=== PATIENT | female | born 1945 | race Caucasian/White ===

== ENCOUNTER 2017-07-02 06:39 | Inpatient (IN) | payer OTHER ==
--- NOTE | 2017-06-10 10:50 | PAT Medication Instructions ---
Service Date Jun 10, 2017. Current Home Medication List Aspirin (Aspirin Ec), 81 MG PO QPM B-Complex W/ Folic Acid (B Complex), 1 TAB PO QAM Calcium/Vitamin D (Os-Gutierrez 500 Plus D), 1 TAB PO QAM Haloperidol (Haloperidol), 1 MG PO HS Hydrochlorothiazide (Hctz), 25 MG PO QAM Ibandronate Sodium (Boniva), 150 MG PO MONTHLY Krill Oil ([place]-3 Krill Oil 500 mg), 1 CAP PO QAM Nortriptyline (Pamelor), 100 MG PO HS Potassium Chloride (Klor-Con Ext Rel), 8 MEQ PO QAM Vitamin E (Vitamin E), 1 TAB PO QAM Medication Instructions For Your Scheduled Surgery - Continue as directed: Ibandronate Sodium (Boniva), 150 MG PO MONTHLY - Hold the following medications 2 weeks prior to surgery: Vitamin E (Vitamin E), 1 TAB PO QAM Krill Oil ([place]-3 Krill Oil 500 mg), 1 CAP PO QAM - Hold the following medications the morning of surgery: B-Complex W/ Folic Acid (B Complex), 1 TAB PO QAM Calcium/Vitamin D (Os-Gutierrez 500 Plus D), 1 TAB PO QAM Hydrochlorothiazide (Hctz), 25 MG PO QAM Potassium Chloride (Klor-Con Ext Rel), 8 MEQ PO QAM - Take the following medications as scheduled the night before surgery: Nortriptyline (Pamelor), 100 MG PO HS Aspirin (Aspirin Ec), 81 MG PO QPM Haloperidol (Haloperidol), 1 MG PO HS Nothing to eat or drink after midnight If you have any questions please call us at [phone] or [phone] or [phone]
[2017-06-10 11:38] LABS: BASO % 0.2 %; BASO ABS # 0.01 K/uL (0-0.2); COMPLETE YES; EOS % 0.2 %; HEMATOCRIT 34.9 % (37-47); IG% 4.9 %; LYMPH % 26.2 %; LYMPH ABS # 1.13 K/uL (1.2-3.4); MEAN CELL VOLUME 95.9 fL (80-100); MEAN CORPUSCULAR HEMOGLOBIN 31.9 pg (25-34); MEAN CORPUSCULAR HGB CONC 33.2 g/dl (32-36); MEAN PLATELET VOLUME 10.2 fL (7.4-10.4); MONO % 10.9 %; NEUT % 57.6 %; PLATELET COUNT 421 K/uL (130-400); RED BLOOD COUNT 3.64 M/uL (4.2-5.4); WHITE BLOOD COUNT 4.32 K/uL (4.8-10.8)
[2017-06-10 11:45] LABS: PARTIAL THROMBOPLASTIN RATIO 1.2; PROTHROMBIN TIME (PATIENT) 11.1 SECONDS (9.0-12.0)
--- NOTE | 2017-06-10 11:48 | DIAGNOSTIC IMAGING REPORT ---
CHEST PREADMISSION(PA/LAT) CLINICAL HISTORY: PAT preoperative evaluation COMPARISON STUDY: No previous studies for comparison. FINDINGS: Mild emphysematous change. Mild diaphragmatic flattening. No focal infiltrates. No cardiac enlargement. IMPRESSION: Mild emphysematous change. No acute process. The above report was generated using voice recognition software. It may contain grammatical, syntax or spelling errors. Electronically signed by: Anant Encarnacion M.D. 06/10/2017 11:47 AM Dictated Date/Time: 06/10/2017 11:46 AM
[2017-06-10 12:09] LABS: ESTIMATED AVERAGE GLUCOSE 131 mg/dl; HA1C FLAG Normal (Normal)
[2017-06-10 13:21] LABS: BUN/CREATININE RATIO 17.7 (10-20); CALCIUM 8.8 mg/dl (8.5-10.1); CREATININE 0.68 mg/dl (0.60-1.20); POTASSIUM 3.3 mmol/L (3.5-5.1)
[2017-06-10 13:30] LABS: URINE APPEARANCE CLOUDY (CLEAR); URINE BILIRUBIN NEG (NEG); URINE COLOR YELLOW; URINE NITRITE NEG (NEG); URINE SPECIFIC GRAVITY 1.013 (1.000-1.030); UROBILINOGEN NEG (NEG)
[2017-06-10 13:46] LABS: MANUAL MICROSCOPIC REQUIRED? NO; REVIEW REQ? NO
--- NOTE | 2017-07-01 12:36 | HISTORY & PHYSICAL EXAMINATION ---
DATE OF ADMISSION: 07/02/2017 CHIEF COMPLAINT: Left hip pain. HISTORY OF PRESENT ILLNESS: The patient is a 71-year-old female with known osteoarthritis about her left hip. She has pain with ambulation requiring use of a cane. She tried intermittent anti-inflammatory medications with minimal relief. Due to ongoing pain and disability, she now desires to proceed with left total hip arthroplasty. PAST MEDICAL HISTORY: Depression, acid reflux, severe arthritis, borderline anemia. PAST SURGICAL HISTORY: Hysterectomy. MEDICATIONS: Include aspirin 81 mg daily, Haldol 1 mg at bedtime, nortriptyline 50 mg 2 capsules at bedtime, Klor-Con 8 mEq daily, MegaRed once daily, HCTZ 50 mg half tablet daily, Boniva monthly. ALLERGIES: No known drug allergies. SOCIAL HISTORY: She lives alone on a single story. She is interested in [facility] upon discharge from the hospital. REVIEW OF SYSTEMS: Noncontributory. PHYSICAL EXAMINATION: GENERAL: Well-nourished, well-developed elderly female who appears her stated age. HEAD, EYES, EARS, NOSE, AND THROAT: Normocephalic, atraumatic, extraocular movements intact, oropharynx pink and moist. NECK: Supple without adenopathy. LUNGS: Clear to auscultation bilaterally. HEART: Regular rate and rhythm. ABDOMEN: Soft, nontender, nondistended. EXTREMITIES: The upper extremities are within normal limits. Left hip demonstrates limited range of motion. There is limitation of active and passive internal/external rotation with pain at end range. X-RAYS: X-rays were reviewed. She has complete loss of the joint space of the left hip. There are osteophytes about the femoral head and acetabulum. ASSESSMENT: Left hip degenerative joint disease. PLAN: Risks versus benefits were discussed, consent was obtained. The patient's primary care physician is Dr. Villeda from [place]. Will proceed with left total hip arthroplasty upon preoperative workup and medical clearance.
[~2017-07-02] VITALS: Ht 167.6 cm; Wt 85.7 kg
[2017-07-02] VITALS (9 sets, daily range): BP systolic 98–156; BP diastolic 62–81; PULSE 91–113; TEMP 36.4–37; O2SAT 93–100; Ht 167.6 cm; Wt 85.7 kg
[2017-07-02] MEDS: TRANEXAMIC ACID INJ 1,000 MG in SODIUM CHLORIDE 0.9% 100ML 100 ML IV SCH ×2 (06:30→08:24)
[~2017-07-02 06:39] MED LIST: ACETAMINOPHEN 500 MG TAB PO SCH; ASPI81TA28 PO; B-COTAB53 PO; BUPIVACAINE 0.5 % 5 MG/1 ML PF 10ML VIAL ONE; CALC500C70 PO; CEFAZOLIN 2000 MG/60 ML D5W 60 ML IV SCH; CeleBREX 200 MG CAP PO SCH; DEXAMETHASONE 4 MG TAB PO SCH; FAMOTIDINE 20 MG TAB PO SCH; GABAPENTIN 300 MG CAP PO SCH; HALO2TAB PO; HYDR25TA4 PO; IBAN150T PO; KRIL1CAP18 PO; LACTATED RINGER'S 1000ML 1,000 ML IV SCH; LACTATED RINGER'S 1000ML 500 ML IV ONE; LACTATED RINGER'S 1000ML IV SCH; METOCLOPRAMIDE HCL 10 MG TAB PO SCH; NORT50CA PO; POTA8CAP6 PO; ROPIVACAINE 5MG/ML 30 ML 150 MG, BUPIVACAINE/EPINEPHR 0.5% MPF 30 ML, KETOROLAC TROMETH... INFIL SCH; VITA1TAB4 PO
--- NOTE | 2017-07-02 07:00 | History & Physical Bridge Note ---
H&P Re-Evaluation Bridge Note: I have examined the patient, reviewed the History & Physical and in the interval since the performance of the History & Physical I have noted the following changes of clinical significance: No changes noted
[2017-07-02] MEDS ORDERED: MIDAZOLAM HCL 1 MG/ML 2ML VIAL ONE (07:35)
[2017-07-02] MEDS ORDERED: FENTANYL CITRATE INJ 50 MCG/1 ML 2 ML VIAL ONE (07:35)
[2017-07-02] MEDS ORDERED: FENTANYL CITRATE INJ 50 MCG/1 ML 2 ML VIAL IV PRN (08:15)
[2017-07-02] MEDS ORDERED: EpHEDrine SULFATE INJ 50 MG/ML AMP IV PRN (08:15)
[2017-07-02] MEDS ORDERED: ATROPINE SULFATE 0.1 MG/ML 5ML SYR IV PRN (08:15)
[2017-07-02] MEDS ORDERED: ONDANSETRON INJ 2 MG/ML 2 ML VIAL IV PRN ×2 (08:15→10:45)
[2017-07-02] MEDS ORDERED: ORTHO JOINT ANESTHETIC ONE (08:33)
[2017-07-02] MEDS ORDERED: POVIDONE-IODINE OP SOLN 30 ML BTL ONE (08:34)
[2017-07-02] MEDS ORDERED: BACITRACIN 50000 UNIT VIAL ONE (08:34)
[2017-07-02] MEDS ORDERED: PHENYLEPHRINE 100MCG/ML 5ML SYR ONE (09:26)
[2017-07-02] MEDS ORDERED: LIDOCAINE HCL 2% 2 ML VIAL (20MG/ML) ONE (09:26)
[2017-07-02] MEDS ORDERED: PROPOFOL IV EMULSION 10 MG/ML 20 ML VIAL IV ONE (09:26)
--- NOTE | 2017-07-02 10:09 | [facility] Post Operative Brief Note ---
Immediate Operative Summary Operative Date Jul 02, 2017. Pre-Operative Diagnosis left hip degenerative joint disease Post-Operative Diagnosis left hip degenerative joint disease Procedure(s) Performed Left total hip arthroplasty Surgeon Dr. Becker Commercial Technician Surgeon(s) Osmani Cole PA-C Estimated Blood Loss 100cc Findings severe OA Specimens A. Left femoral head Complication(s) None Disposition Recovery Room / PACU
--- NOTE | 2017-07-02 10:18 | OPERATIVE REPORT ---
DATE OF OPERATION: 07/02/2017 PREOPERATIVE DIAGNOSIS: Osteoarthritis left hip. POSTOPERATIVE DIAGNOSIS: Osteoarthritis left hip. PROCEDURE: Left connective total hip arthroplasty. SURGEON: Dr. Becker. GARAGE MANAGER: Osmani Cole PA-C. ANESTHESIA: Spinal. COMPLICATIONS: None. OPERATION AND FINDINGS: PROCEDURE: Following induction of adequate spinal anesthesia, the patient was placed in right lateral decubitus position and left Elenita-Langenbeck incision was made. Subcutaneous tissue was sharply dissected. Electrocautery used for hemostasis. The fascia was incised throughout the length of the wound and a simon scissor placed beneath the short external rotators. The pyriformis was tagged with #1 Vicryl. The short external rotators were divided from the posterior aspect of the femur using electrocautery. These were swept posteriorly. A T-capsulotomy incision was made and the hip was dislocated using a combination of flexion, adduction, and internal rotation. Exposure of the femoral neck with old-style Hohmann and a blunt Hohmann was carried out and a femoral rasp was utilized as a guide for making the appropriate level femoral neck cut. This bone fragment was removed and reserved on the back table. Next, attention was turned to the acetabulum where bone hook was used to retract the femur while the offset retractors were placed anterior and posteriorly. A double-angled Hohmann was placed in superior and anterior position exposing the acetabulum nicely. Acetabular labrum as well as posterior capsule elements were removed using a long knife and a long pickup. Fovea centralis was cleared of all soft tissue. Sequential reamings were carried up to a size 50 and decision was made to proceed with impaction of a size 50 trabecular metal cup. This was impacted and held using a single 35 mm bone screw. The acetabular liner was placed with 15 of elevated posterior wall in the superior and posterior position. Next, attention was turned to the femoral portion of the case where a Bovie and pickup was used to further clear short external rotators from their insertion on the femur. Box osteotome was used to gain access to the femoral canal and the T-handled rasp and a rattail rasp were used to further open and lateral the canal. Sequentially raspings were carried up to a size 3 which gave good fit and fill of the proximal femur. A trial reduction was carried out and 127 offset femoral neck component was chosen as the size to be used. A -2.5 x 36 mm ceramic femoral head was impacted into position, +0 head was utilized. The trial reduction was stable in all degrees of rotation with no [id number] impingement. The hip was dislocated. The trial components were removed and the final femoral stem, neck, and femoral head combination were assembled on the back table and impacted into position. Hip was relocated. Range of motion checked once again successful and the wound was irrigated. The pyriformis repaired to the greater trochanter using #1 Vicryl [id number] suture. A Hemovac drain was placed and the fascia was closed using #1 Vicryl, subcutaneous tissue was closed using 0 Dexon, and skin was closed with oralia. Sterile dressing of Adaptic, 4 x 4's, ABDs, and foam tape was applied. The patient tolerated the procedure well. Recovery room stable. Due to the complex nature of the procedure, the entire surgery was performed with the operational assistance of Osmani Cole PA-C. The nutrition assistant, under direct supervision, was involved in the actual performance of all aspects of the surgical procedure including hemostasis, tissue retraction and incision, instrument management, patient positioning, and wound closure. I attest to the content of the Intraoperative Record and any orders documented therein. Any exception s are noted below.
[2017-07-02] MEDS ORDERED: MAGNESIUM HYDROXIDE SUSP 30 ML UDC PO PRN (10:45)
[2017-07-02] MEDS ORDERED: ALUMINUM/MAGNESIUM/SIMETH (MAALOX MAX) 30 ML UDC PO PRN (10:45)
[2017-07-02] MEDS ORDERED: ZOLPIDEM TARTRATE 5 MG TAB PO PRN (10:45)
[2017-07-02] MEDS ORDERED: MoRPHine SULFATE 2 MG/ML CARP IV PRN (10:45)
[2017-07-02] MEDS ORDERED: METOCLOPRAMIDE HCL INJ 5 MG/ML 2 ML VIAL IV PRN (10:45)
--- NOTE | 2017-07-02 11:27 | DIAGNOSTIC IMAGING REPORT ---
AP PELVIS AND LEFT HIP 2 VIEWS CLINICAL HISTORY: Degenerative arthritis. Postop study COMPARISON STUDY: No previous studies for comparison. FINDINGS: There are postsurgical changes of a total left hip arthroplasty. The acetabular and femoral components appear well seated. There is no dislocation. The femoral head epicenter appears minimally displaced from the epicenter of the acetabular cup. This could be a projectional artifact. There is bony lucency at the inferior level of the acetabular cup. There are overlying surgical drains. IMPRESSION: Postsurgical changes of a total left hip arthroplasty. No evidence of dislocation. Electronically signed by: Meir Deluca M.D. 07/02/2017 11:25 AM Dictated Date/Time: 07/02/2017 11:20 AM
[2017-07-02] MEDS ORDERED: MoRPHine SULFATE 10 MG/ML CARP/VIAL IV PRN ×2 (12:45)
[2017-07-02] MEDS ORDERED: MoRPHine SULFATE 4 MG/ML 1 ML CARP\\VIAL IV PRN ×2 (12:45)
[2017-07-02] MEDS: D5W AND 1/2NSS + 20MEQ KCL 1,000 ML IV SCH ×2 (12:48→22:30)
--- NOTE | 2017-07-02 12:54 | Anesthesiology Progress Note ---
Anesthesia Post Op Note Date & Time Jul 02, 2017 at 12:53 Vital Signs Pain Intensity: 0 Vital Signs Past 12 Hours Date Time Temp Pulse Resp B/P (MAP) Pulse Ox O2 Delivery O2 Flow Rate FiO2 07/02/17 12:00 36.4 96 18 101/64 (76) 96 Nasal Cannula 2.0 07/02/17 12:00 Nasal Cannula 2.0 07/02/17 12:00 96 Nasal Cannula 2.0 07/02/17 11:45 37.0 92 16 104/56 96 Nasal Cannula 2 07/02/17 11:42 95 17 96 07/02/17 11:42 95 17 07/02/17 11:41 98/60 07/02/17 11:37 94 18 07/02/17 11:37 94 18 97 07/02/17 11:36 98/60 07/02/17 11:32 92 16 07/02/17 11:32 96 16 97 07/02/17 11:31 96/58 07/02/17 11:27 96 16 07/02/17 11:27 96 16 96 07/02/17 11:26 102/67 07/02/17 11:22 96 15 07/02/17 11:22 94 15 97 07/02/17 11:21 94 15 95/69 98 07/02/17 11:21 94 15 07/02/17 11:16 95 16 107/75 99 07/02/17 11:16 95 16 07/02/17 11:11 91 18 117/68 96 07/02/17 11:11 92 18 07/02/17 11:06 93 16 07/02/17 11:06 93 16 111/65 99 07/02/17 11:05 93 18 100 07/02/17 11:05 93 16 111/65 99 Nasal Cannula 2 07/02/17 11:05 94 18 07/02/17 11:01 109/63 07/02/17 11:00 90 18 127/87 100 07/02/17 11:00 91 18 07/02/17 10:56 127/87 07/02/17 10:55 92 19 07/02/17 10:55 92 19 100 07/02/17 10:51 119/77 07/02/17 10:50 86 16 99 07/02/17 10:50 87 16 07/02/17 10:46 108/74 07/02/17 10:45 90 19 07/02/17 10:45 90 19 99 07/02/17 10:41 110/66 07/02/17 10:40 36.6 93 20 110/66 98 Oxymask 10 07/02/17 10:40 93 18 07/02/17 10:40 93 18 92 07/02/17 07:27 36.4 91 20 156/81 94 Room Air Notes Mental Status: alert / awake / arousable, participated in evaluation Pt Amnestic to Procedure: Yes Nausea / Vomiting: adequately controlled Pain: adequately controlled Airway Patency, RR, SpO2: stable & adequate BP & HR: stable & adequate Hydration State: stable & adequate Neuraxial Anesthesia: was administered, sensory block is resolving Anesthetic Complications: no major complications apparent
[2017-07-02] MEDS: FERROUS GLUCONATE 324 MG TAB PO SCH ×2 (13:13→17:11)
[2017-07-02] MEDS: KETOROLAC TROMETHAMINE 15 MG/ML VIAL IV. SCH ×2 (17:04→21:26)
[2017-07-02] MEDS: CEFAZOLIN IV 2,000 MG in DEXTROSE 5% 50ML 50 ML IV SCH (17:04)
[2017-07-02] MEDS: ACETAMINOPHEN 500 MG TAB PO SCH (17:11)
[2017-07-02] MEDS ORDERED: CeleBREX 200 MG CAP PO SCH (21:00)
[2017-07-02] MEDS: PREGABALIN 75 MG CAP PO SCH (21:21)
[2017-07-02] MEDS: NORTRIPTYLINE HCL 25 MG CAP PO SCH (21:23)
[2017-07-02] MEDS: OXYCODONE HCL IR 5 MG TAB (IMMEDIATE RELEASE) PO PRN (21:23)
[2017-07-02] MEDS: ASPIRIN 81 MG ECTAB PO SCH (21:25)
[2017-07-02] MEDS: HALOPERIDOL 1 MG TAB PO SCH (21:25)
[2017-07-02] MEDS: DOCUSATE SODIUM 100 MG CAP PO SCH (21:25)
[2017-07-03] VITALS (16 sets, daily range): BP systolic 101–155; BP diastolic 65–78; PULSE 77–106; TEMP 36.4–37; O2SAT 93–99
[2017-07-03] MEDS: CEFAZOLIN IV 2,000 MG in DEXTROSE 5% 50ML 50 ML IV SCH (00:07)
[2017-07-03] MEDS: ACETAMINOPHEN 500 MG TAB PO SCH ×3 (01:53→17:44)
[2017-07-03] MEDS: KETOROLAC TROMETHAMINE 15 MG/ML VIAL IV. SCH ×2 (03:59→10:32)
[2017-07-03 07:26] LABS: HEMATOCRIT 18.3 % (37-47); MEAN CELL VOLUME 93.4 fL (80-100); MEAN CORPUSCULAR HEMOGLOBIN 33.2 pg (25-34); MEAN CORPUSCULAR HGB CONC 35.5 g/dl (32-36); MEAN PLATELET VOLUME 10.3 fL (7.4-10.4); PLATELET COUNT 225 K/uL (130-400); RED BLOOD COUNT 1.96 M/uL (4.2-5.4); WHITE BLOOD COUNT 9.28 K/uL (4.8-10.8)
[2017-07-03] MEDS ORDERED: DEXAMETHASONE INJ 10 MG in SYRINGE 0 ML IV ONE (07:30)
[2017-07-03 07:47] LABS: BASO ABS # 0.16 K/uL (0-0.2); BASOPHIL % 1.7 %; COMPLETE YES; LYMPH ABS # 0.89 K/uL (1.2-3.4); LYMPHOCYTE % 9.6 %; NEUTROPHILS % 80.9 %
[2017-07-03 07:51] LABS: BUN/CREATININE RATIO 23.8 (10-20); CALCIUM 7.7 mg/dl (8.5-10.1); CREATININE 0.86 mg/dl (0.60-1.20); POTASSIUM 4.2 mmol/L (3.5-5.1)
--- NOTE | 2017-07-03 07:59 | Orthopedic Progress Note ---
Orthopedic Progress Note Date of Service Jul 03, 2017. Subjective Post OP Day: 1 Reports: feeling well Objective N/V intact, dressing C/D/I (Hemovac d/c'd), toes mobile Date Time Temp Pulse Resp B/P (MAP) Pulse Ox O2 Delivery O2 Flow Rate FiO2 07/03/17 04:10 36.4 92 17 101/66 (78) 97 Room Air 07/03/17 00:25 Room Air 07/02/17 22:59 36.9 98 17 107/70 (82) 96 Room Air 07/02/17 19:15 37.0 105 20 108/68 (81) 93 Room Air 07/02/17 16:00 Nasal Cannula 2.0 07/02/17 15:01 36.5 108 18 105/70 (82) 97 Nasal Cannula 2.0 07/02/17 14:28 111 18 98/66 (77) 97 07/02/17 14:17 105 07/02/17 13:30 113 18 100/62 (75) 100 07/02/17 12:30 111 18 108/71 (83) 100 07/02/17 12:00 36.4 96 18 101/64 (76) 96 Nasal Cannula 2.0 07/02/17 12:00 Nasal Cannula 2.0 07/02/17 12:00 96 Nasal Cannula 2.0 07/02/17 11:45 37.0 92 16 104/56 96 Nasal Cannula 2 07/02/17 11:42 95 17 96 07/02/17 11:42 95 17 07/02/17 11:41 98/60 07/02/17 11:37 94 18 07/02/17 11:37 94 18 97 07/02/17 11:36 98/60 07/02/17 11:32 92 16 07/02/17 11:32 96 16 97 07/02/17 11:31 96/58 07/02/17 11:27 96 16 07/02/17 11:27 96 16 96 07/02/17 11:26 102/67 07/02/17 11:22 96 15 07/02/17 11:22 94 15 97 07/02/17 11:21 94 15 95/69 98 07/02/17 11:21 94 15 07/02/17 11:16 95 16 107/75 99 07/02/17 11:16 95 16 07/02/17 11:11 91 18 117/68 96 07/02/17 11:11 92 18 07/02/17 11:06 93 16 07/02/17 11:06 93 16 111/65 99 07/02/17 11:05 93 18 100 07/02/17 11:05 93 16 111/65 99 Nasal Cannula 2 07/02/17 11:05 94 18 07/02/17 11:01 109/63 07/02/17 11:00 90 18 127/87 100 07/02/17 11:00 91 18 07/02/17 10:56 127/87 07/02/17 10:55 92 19 07/02/17 10:55 92 19 100 07/02/17 10:51 119/77 07/02/17 10:50 86 16 99 07/02/17 10:50 87 16 07/02/17 10:46 108/74 07/02/17 10:45 90 19 07/02/17 10:45 90 19 99 07/02/17 10:41 110/66 07/02/17 10:40 36.6 93 20 110/66 98 Oxymask 10 07/02/17 10:40 93 18 07/02/17 10:40 93 18 92 Laboratory Results 24 Hours: Test 07/03/17 06:46 White Blood Count 9.28 K/uL Red Blood Count 1.96 M/uL Hemoglobin 6.5 g/dL Hematocrit 18.3 % Mean Corpuscular Volume 93.4 fL Mean Corpuscular Hemoglobin 33.2 pg Mean Corpuscular Hemoglobin Concent 35.5 g/dl Platelet Count 225 K/uL Mean Platelet Volume 10.3 fL Assessment & Plan Assessment: 71 yo female stable POD #1 s/p left KAREEN, acute blood loss anemia Plan: 1. Med management 2. DVT prophylaxis- ASA, SCDs 3. PT/OT 4. D/C planning- pt interested in [facility]
[2017-07-03] MEDS ORDERED: PNEUMOCOCCAL POLYSACCHARIDES 25 MCG/0.5 ML VIAL/SYR IM. ONE (08:00)
[2017-07-03] MEDS ORDERED: PNEUMOCOCCAL ADMINISTRATION CHARGE ONE (08:00)
--- NOTE | 2017-07-03 08:01 | Discharge Instructions ---
Discharge Instructions Date of Service Jul 03, 2017. Admission Reason for Admission: Left Hip Degenerative Joint Disease Discharge Discharge Diagnosis / Problem: Left hip arthritis Discharge Goals Goal(s): Decrease discomfort, Improve function Activity Recommendations Activity Limitations: as noted below Weightbearing Status: Left weightbearing (as tolerated) . Instructions / Follow-Up Instructions / Follow-Up ACTIVITY RECOMMENDATIONS: SELF CARE INSTRUCTIONS AFTER TOTAL HIP REPLACEMENT Until the incision and soft tissues around your hip have healed, there is a possibility that the hip prosthesis could dislocate. A. Observe the following precautions to prevent dislocation: 1. Don't bend your hip greater than 90 degrees. 2. Avoid crossing your legs or ankles while standing or lying. 3. Sit with your feet placed 6 inches apart. 4. When sitting, keep your knees below your hips. Sit on a firm surface, avoid deep, soft chairs and couches. Use an elevated toilet seat in the bathroom. 5. Don't bend over at the waist. Use a long handled shoehorn and a sock aid to help you put on your shoes and socks. A retread supervisor can help you warehouse order picker objects that are too high or too low to reach. 6. Keep car riding to a minimum for at least one month after surgery. B. Your balance may be shaky for a while. Use crutches or a walker until directed by your doctor. C. Use hand rails when walking on stairs. D. Wear low heeled shoes with non-slip soles. E. Be sure that your floors are free of things that could trip you - throw rugs , electrical cords, small objects. Avoid wet and waxed floors, especially with crutches and canes. F. Try to walk several times a day with rest periods between. G. Continue with all the exercises taught to you in the hospital. Again, make walking a part of your daily routine. SPECIAL CARE INSTRUCTIONS: VERY IMPORTANT TO READ AND REVIEW A. You may still be at risk for phlebitis and blood clots. 1. Wear surgical stockings (RORO hose) for 2 weeks after surgery to improve circulation and reduce swelling. 2. Take Aspirin 81mg twice daily for 4 weeks or as directed by your doctor. This is your blood thinner. 3. High risk patients may be prescribed a stronger blood thinner if necessary. 4. If you are on Coumadin normally, your family doctor/dinkey locomotive operator should monitor your blood work. Expect a phone call the day of or the day after bloodwork is drawn to adjust your dosage. B. You must take antibiotics before having dental work, bladder, bowel and other surgery. Your doctor will provide you with a permanent card to carry describing precautions. C. Call [facility] if you have a fever, redness or swelling around the incision, cloudy drainage from incision, or sudden increase in pain in your hip, not relieved by your regular pain medication. D. Please call the office at if you have any concerns or questions about your operation or recovery. * YOU MAY SHOWER, NO TUB BATHS UNTIL CLEARED BY YOUR DOCTOR. * WEAR RORO HOSE 20 HOURS PER DAY FOR 2 WEEKS. * YOU SHOULD USE A WALKER OR CRUTCHES FOR 2-4 WEEKS. THIS WILL HELP PREVENT STRAIN ON YOUR HIP MUSCLE AND ALLOW IT TO HEAL PROPERLY. YOU MAY WEAN TO A CANE TOLERATED. * MOST PATIENTS WILL HAVE HOME NURSING FOR THERAPY. IF YOU DECIDE TO DO OUTPATIENT PHYSICAL THERAPY, PLEASE SCHEDULE THIS 3 TIMES PER WEEK. Silverlon- This is a large adhesive bandage that contains silver ions. This helps your incision heal by fighting off bacteria and protecting it from the outside environment. You are permitted to shower with this dressing. This will remain on your incision for 7 days and then should be removed. Some visible blood or drainage through the dressing window is normal. If there is significant drainage or leaking noted before the 7 days notify your doctor's office immediately. Once removed, keep incision clean and dry. If there is any drainage or redness noted, please call your surgeon. FOLLOW UP VISIT: If appointment is not already scheduled: Please call [facility] to make a follow-up appointment for 2 weeks after your surgery at . Current Hospital Diet Patient's current hospital diet: Regular Diet Discharge Diet Recommended Diet: Regular Diet Procedures Procedures Performed: Left total hip arthroplasty Pending Studies Studies pending at discharge: no Laboratory Results Hemoglobin A1c Test 06/10/17 10:59 Range/Units Estimated Average Glucose 131 mg/dl Hemoglobin A1c 6.2 H 4.5-5.6 % Medical Emergencies . Who to Call and When: Medical Emergencies: If at any time you feel your situation is an emergency, please call 911 immediately. . Non-Emergent Contact Non-Emergency issues call your: Surgeon Call Non-Emergent contact if: temperature is above 101.5, your pain is not controlled, wound has increased drainage, wound has increased redness . "Provider Documentation" section prepared by Osmani Cole PA-C. . VTE Core Measure Inpt VTE Proph given/why not?: Other Anticoagulation (ASA), T.E.D. Stockings, SCD's [place] Drug Monitoring Program Search Results: patient reviewed within database, no issues identified
--- NOTE | 2017-07-03 08:48 | Anesthesiology Progress Note ---
Anesthesia Post Op Note Date & Time Jul 03, 2017 at 08:47 Vital Signs Pain Intensity: 0.0 Vital Signs Past 12 Hours Date Time Temp Pulse Resp B/P (MAP) Pulse Ox O2 Delivery O2 Flow Rate FiO2 07/03/17 07:30 Room Air 07/03/17 07:08 36.6 92 16 122/72 (89) 96 Room Air 07/03/17 04:10 36.4 92 17 101/66 (78) 97 Room Air 07/03/17 00:25 Room Air 07/02/17 22:59 36.9 98 17 107/70 (82) 96 Room Air Notes Mental Status: alert / awake / arousable, participated in evaluation Pt Amnestic to Procedure: Yes Nausea / Vomiting: adequately controlled Pain: adequately controlled Airway Patency, RR, SpO2: stable & adequate BP & HR: stable & adequate Hydration State: stable & adequate Neuraxial Anesthesia: sensory block resolved Anesthetic Complications: no major complications apparent
[2017-07-03] MEDS: D5W AND 1/2NSS + 20MEQ KCL 1,000 ML IV SCH (09:09)
[2017-07-03] MEDS: PREGABALIN 75 MG CAP PO SCH ×2 (09:10→20:39)
[2017-07-03] MEDS: HYDROCHLOROTHIAZIDE 25 MG TAB PO SCH (09:10)
[2017-07-03] MEDS: ASPIRIN 81 MG ECTAB PO SCH ×2 (09:11→20:39)
[2017-07-03] MEDS: OXYCODONE HCL IR 5 MG TAB (IMMEDIATE RELEASE) PO PRN (09:11)
[2017-07-03] MEDS: MULTIVITAMIN TAB PO SCH (09:12)
[2017-07-03] MEDS: DOCUSATE SODIUM 100 MG CAP PO SCH ×2 (09:12→20:39)
[2017-07-03] MEDS: PANTOprazole SOD 40 MG TAB PO SCH (09:12)
[2017-07-03] MEDS: FERROUS GLUCONATE 324 MG TAB PO SCH ×3 (09:13→17:43)
[2017-07-03] MEDS: CeleBREX 200 MG CAP PO SCH (20:39)
[2017-07-03] MEDS: HALOPERIDOL 1 MG TAB PO SCH (20:39)
[2017-07-03] MEDS: NORTRIPTYLINE HCL 25 MG CAP PO SCH (20:40)
[2017-07-04] MEDS: ACETAMINOPHEN 500 MG TAB PO SCH ×3 (01:46→18:09)
[2017-07-04 07:11] LABS: HEMATOCRIT 23.4 % (37-47); MEAN CORPUSCULAR HEMOGLOBIN 31.2 pg (25-34); MEAN CORPUSCULAR HGB CONC 34.6 g/dl (32-36); MEAN PLATELET VOLUME 9.8 fL (7.4-10.4); PLATELET COUNT 199 K/uL (130-400)
[2017-07-04 07:28] VITALS: BP 141/75; PULSE 82; TEMP 36.4; O2SAT 100
[2017-07-04 07:30] VITALS: O2SAT 100
--- NOTE | 2017-07-04 08:02 | Orthopedic Progress Note ---
Orthopedic Progress Note Date of Service Jul 04, 2017. Subjective Post OP Day: 2 Reports: feeling well, Denies: chest pain, SOB, nausea / vomiting, light headedness, calf pain Objective calves soft nontender, N/V intact, hip located, dressing C/D/I (SILVERLON), A&O x3, toes mobile Date Time Temp Pulse Resp B/P (MAP) Pulse Ox O2 Delivery O2 Flow Rate FiO2 07/03/17 23:55 36.6 84 16 138/75 (96) 98 Room Air 07/03/17 23:49 Room Air 07/03/17 20:44 36.5 84 18 146/74 (98) 99 Room Air 07/03/17 16:45 36.8 93 18 129/71 (90) 94 Room Air 07/03/17 16:15 37.0 97 18 155/78 (103) 95 Room Air 07/03/17 15:30 Room Air 07/03/17 15:17 36.8 86 18 137/70 (92) 93 Room Air 07/03/17 15:15 36.8 86 18 137/70 93 07/03/17 14:43 36.8 86 16 142/74 93 07/03/17 14:15 36.5 86 18 137/74 93 07/03/17 14:02 36.6 77 18 135/75 93 07/03/17 13:37 36.6 95 18 137/73 07/03/17 13:20 36.7 95 18 142/74 97 07/03/17 12:14 36.6 91 18 125/65 98 07/03/17 12:00 36.9 102 18 127/73 96 07/03/17 11:43 36.7 106 18 126/68 Laboratory Results 24 Hours: Test 07/04/17 06:56 Hematocrit 23.4 % Hemoglobin 8.1 g/dL Assessment & Plan Assessment: 71 yo female stable POD #2 s/p left KAREEN, acute blood loss anemia Plan: 1. ANEMIA- 2 UNITS YESTERDAY, IMPROVED TO 8.1. WILL CONTINUE TO MONITOR. 2. DVT prophylaxis- ASA, SCDs 3. PT/OT 4. D/C planning- pt interested in [facility], ACCEPTED. POSSIBLE TRANSFER TODAY VS SUN PENDING PT PROGRESS.
[2017-07-04] MEDS ORDERED: ONDA8TAB6 PO (08:04)
[2017-07-04] MEDS ORDERED: ASPI81TA28 PO (08:04)
[2017-07-04] MEDS ORDERED: RXC5 PO (08:04)
[2017-07-04] MEDS ORDERED: ACET-24 PO (08:04)
[2017-07-04] MEDS ORDERED: CLB200 PO (08:04)
[2017-07-04] MEDS: FERROUS GLUCONATE 324 MG TAB PO SCH ×3 (09:22→18:09)
[2017-07-04] MEDS: PREGABALIN 75 MG CAP PO SCH ×2 (09:22→21:05)
[2017-07-04] MEDS: MULTIVITAMIN TAB PO SCH (09:23)
[2017-07-04] MEDS: ASPIRIN 81 MG ECTAB PO SCH ×2 (09:24→21:05)
[2017-07-04] MEDS: PANTOprazole SOD 40 MG TAB PO SCH (09:24)
[2017-07-04] MEDS: CeleBREX 200 MG CAP PO SCH ×2 (09:24→21:06)
[2017-07-04] MEDS: DOCUSATE SODIUM 100 MG CAP PO SCH ×2 (09:24→21:05)
[2017-07-04] MEDS: HYDROCHLOROTHIAZIDE 25 MG TAB PO SCH (09:25)
[2017-07-04 10:50] VITALS: BP 146/75; PULSE 91; O2SAT 100
[2017-07-04 13:05] VITALS: BP 152/76; PULSE 77; TEMP 36.4; O2SAT 98
[2017-07-04 15:06] VITALS: BP 127/72; PULSE 69; TEMP 36.5; O2SAT 97
[2017-07-04] MEDS: NORTRIPTYLINE HCL 25 MG CAP PO SCH (21:05)
[2017-07-04] MEDS: HALOPERIDOL 1 MG TAB PO SCH (21:05)
[2017-07-04 23:10] VITALS: BP 134/69; PULSE 84; TEMP 36.4; O2SAT 96
[2017-07-05] MEDS: ACETAMINOPHEN 500 MG TAB PO SCH ×2 (01:49→09:47)
[2017-07-05 07:17] VITALS: BP 108/72; PULSE 94; TEMP 36.5; O2SAT 94
--- NOTE | 2017-07-05 08:16 | Orthopedic Progress Note ---
Orthopedic Progress Note Date of Service Jul 05, 2017. Subjective Post OP Day: 3 Reports: feeling well, Denies: chest pain, SOB, nausea / vomiting, light headedness, calf pain Objective calves soft nontender, N/V intact, hip located, dressing C/D/I, A&O x3, toes mobile Date Time Temp Pulse Resp B/P (MAP) Pulse Ox O2 Delivery O2 Flow Rate FiO2 07/05/17 07:17 36.5 94 16 108/72 (84) 94 Room Air 07/04/17 23:30 Room Air 07/04/17 23:10 36.4 84 16 134/69 (90) 96 Room Air 07/04/17 16:30 Room Air 07/04/17 15:06 36.5 69 18 127/72 (90) 97 Room Air 07/04/17 13:05 36.4 77 16 152/76 (101) 98 Room Air 07/04/17 10:50 91 100 Assessment & Plan Assessment: 71 yo female stable POD #3 s/p left KAREEN, acute blood loss anemia Plan: 1. ANEMIA- 2 UNITS, IMPROVED TO 8.1. WILL CONTINUE TO MONITOR. 2. DVT prophylaxis- ASA, SCDs 3. PT/OT 4. D/C planning- pt interested in [facility], ACCEPTED. POSSIBLE TRANSFER TODAY
[2017-07-05] MEDS: DOCUSATE SODIUM 100 MG CAP PO SCH (08:56)
[2017-07-05] MEDS: PANTOprazole SOD 40 MG TAB PO SCH (08:56)
[2017-07-05] MEDS: ASPIRIN 81 MG ECTAB PO SCH (08:56)
[2017-07-05] MEDS: CeleBREX 200 MG CAP PO SCH (08:56)
[2017-07-05] MEDS: HYDROCHLOROTHIAZIDE 25 MG TAB PO SCH (08:57)
[2017-07-05] MEDS: FERROUS GLUCONATE 324 MG TAB PO SCH (08:57)
[2017-07-05] MEDS: MULTIVITAMIN TAB PO SCH (08:58)
[2017-07-05] MEDS: PREGABALIN 75 MG CAP PO SCH (09:01)
[2017-07-05 10:43] VITALS: BP 108/72; PULSE 94; TEMP 36.5; O2SAT 94
--- NOTE | 2017-07-16 00:48 | DISCHARGE SUMMARY ---
CHIEF COMPLAINT: Left hip pain. Please see complete history and physical examination. HOSPITAL COURSE: The patient underwent left total hip arthroplasty without complication. She tolerated the procedure well and was discharged to recovery room in stable condition. Her postop course was relatively uneventful. Her postoperative pain was reasonably well controlled with a combination of spinal anesthesia, intraoperative joint injection, IV and oral pain medications. She was started on aspirin for DVT prophylaxis. She also utilized RORO stockings and SCDs for additional prophylaxis. She was transfused 2 units of packed red cells for low H&H of 6.5 and 18.3. Her H&H responded appropriately and was 8.1 and 23.4 the next day. Her surgical dressing was discontinued on postoperative day 1, her surgical drain will remain in place for approximately 7 days postoperative. She tolerated postop physical therapy reasonably well. She was ambulating and transferring appropriately. She was observing all total hip precautions. She was transferred to [facility] on postoperative day #3. She will continue her physical therapy there. She will continue her aspirin for DVT prophylaxis and follow up in our office in approximately 10-14 days for initial postop evaluation.
== END 2017-07-05 13:22 | DRG 470 ==
LOC: C.ACU 06:39 → C.MSW 08:01 → ENRESERV 11:19
PROC: 0SRB0JZ Replacement of Left Hip Joint with Synthetic Substitute, Open Approach (ICD-10-PCS; principal; 2017-07-02 09:00)
DX: M16.12 Unilateral primary osteoarthritis, left hip (principal); D62 Acute posthemorrhagic anemia; F32.9 Major depressive disorder, single episode, unspecified; Z79.899 Other long term (current) drug therapy; Z79.82 Long term (current) use of aspirin

== ENCOUNTER 2020-09-06 15:33 | Inpatient (IN) ==
--- NOTE | 2020-09-06 16:58 | Emergency Department Note ---
Impression & Plan Congestive heart failure, Edema, Tachycardia, MDS/MPN (myelodysplastic/myeloproliferative neoplasms) ED Provider Note NAME: REID ADAMSON AGE: 74 SEX: F : 1945 ARRIVES VIA: Walk-In INFORMANT: Patient ED PROVIDER(S): Lucian Lazar DO CHIEF COMPLAINT: Shortness of breath and swelling in the legs HPI: Patient is a 74-year-old female with past medical history of myelodysplastic syndrome that presents the ER for increased shortness of breath and swelling of the legs which has been present for 7 to 10 days. She notes she is extremely short of breath with any kind of movement. She denies any chest pain, belly pain, nausea, vomiting or diarrhea. She has had 2 transfusions within the past month. Denies any nausea, vomiting or diarrhea. No other exacerbating or remitting factors. ROS: See above HPI for pertinent positives & negatives. A total of 10 systems reviewed and were otherwise negative. PAST MEDICAL HISTORY:See Below PAST SURGICAL HISTORY:See Below FAMILY HISTORY:See Below SOCIAL HISTORY:See Below HOME MEDICATIONS:See Below ALLERGIES:See Below VITALS:See Below PHYSICAL EXAMINATION: GENERAL: Sitting up in bed, alert, obese, chronically ill-appearing, dyspneic with conversation EYE EXAM: normal conjunctiva. OROPHARYNX: no exudate, no erythema, lips, buccal mucosa, and tongue normal and mucous membranes are moist NECK: supple, no nuchal rigidity, no adenopathy, non-tender LUNGS: Diminished at the bases. Normal chest wall mechanics HEART: no murmurs, S1 normal and S2 normal ABDOMEN: abdomen soft, non-tender, normo-active bowel sounds, no masses, no rebound or guarding. UPPER EXTREMITIES: upper extremities are grossly normal. LOWER EXTREMITIES: Diffuse pitting edema tracking up to the thighs NEURO EXAM: Normal sensorium, cranial nerves II-XII grossly intact, normal speech, no gross weakness of arms, no gross weakness of legs. MEDICAL DECISION MAKING: Patient is a 74-year-old female who presents ER for shortness of breath. This started over the past week. Gradually getting worse. She is noted increased swelling in her lower extremities. History of myelodysplastic syndrome. IV was established blood work was obtained. Labs show mild anemia at 8.2. No significant leukocytosis. Mild thrombocytopenia at 70 consistent with previous. INR at 1.2. BMP with mild hypokalemia and hyponatremia. LFTs bilirubin was unremarkable. Troponin was negative with symptoms have been present for greater than 6 hours. Not indicative of ACS. Patient was given a dose of Lasix as I do favor this secondary to CHF in combination with a low albumin. She has no upper respiratory symptoms to suggest infection at this time. She was updated bedside. Chest x-ray does show some cephalization. EKG was unchanged. Patient was updated and discussed the hospitalist for further evaluation. Triage Nursing notes reviewed. Prior medical records reviewed Vital Signs: reviewed and remarkable for tachycardic Differential diagnosis: Differential diagnoses includes but is not limited to pneumonia, bronchitis, COPD/Asthma exacerbation, pneumothorax, pulmonary embolism, congestive heart failure, acute coronary syndrome ER treatment provided: See below Diagnostics interpreted by me: ECG: Sinus tachycardia rate of 113 Normal axis Poor baseline in the inferior leads Normal PVCs Cardiac Monitoring: An order was placed for continuous cardiac monitoring. The monitor shows a rate of 109 with sinus rhythm. Laboratory studies: As stated above and show below. Imaging studies: Portable AP upright 1 view of the chest shows cephalization without any focal infiltrate Consultation(s): Discussed with Dr. 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 Surgical History History of revision of total replacement of left hip joint Hx of colonoscopy Hx of total hysterectomy with removal of both tubes and ovaries Status post left hip replacement Family History Father Congestive heart failure Hypertension Cardiac disorder Mother Myocardial infarction Hypertension Cardiac disorder Brother Hypertension Denies family history of Ovarian cancer Prostate cancer Bipolar disorder Colorectal cancer Social History Smoking Status: Never smoker Second Hand Exposure: Yes; Hx Alcohol Use: No Hx Substance Use: No Preferred Language: Lithuanian Communication Ability: Effective Machine Spring Former Required: No Beliefs That Will Affect Care: None and Faith Faith Beliefs: PREFERS BOX TOE FLANGER STITCHDOWNS TO COME IN AND PRAY WITH HER PRIOR TO OPERATION marital status: Current Living Situation: Alone current occupational status: retired Feels Safe at Home: Yes Dental Care, Regularly: Yes Physical Activity Frequency: Does not Exercise Seatbelt Use: always Sunscreen Use: Yes Assistive Devices: Glasses and Walker Allergies Allergies Allergy/AdvReac Type Severity Reaction Status Date / Time latex Allergy Unknown RASH FROM Verified 09/06/20 17:43 LATEX GLOVES Home Meds Home Medications Medication Instructions Recorded Confirmed aspirin [Aspir-81] 1 tab PO BID 07/12/18 09/06/20 cholecalciferol (vitamin D3) 2,000 unit PO QAM 07/12/18 09/06/20 [Vitamin D3] multivitamin 1 tab PO DAILY 06/14/19 09/06/20 potassium chloride 8 mEq 8 meq PO DAILY 03/30/20 09/06/20 capsule,extended release cyanocobalamin (vitamin B-12) 1,000 mcg PO DAILY 09/06/20 09/06/20 [Vitamin B-12] Previous Rx's Medication Instructions Recorded amoxicillin 500 mg capsule 2,000 mg PO ONCE PRN #4 cap 12/30/19 ibandronate 150 mg tablet 150 mg PO MONTHLY #3 tab 01/20/20 haloperidol 0.5 mg tablet 1 mg PO HS #180 tab 03/05/20 nortriptyline 50 mg capsule 100 mg PO HS #60 cap 04/02/20 spironolactone 25 1 tab PO DAILY #90 tab 06/04/20 mg-hydrochlorothiazide 25 mg tablet amlodipine 2.5 mg tablet 2.5 mg PO DAILY #90 tab 07/04/20 raloxifene 60 mg tablet 60 mg PO DAILY #90 tab 07/04/20 Results & Data (ED) Vital Signs Vital Signs - 24 hr 09/06/20 15:41 09/06/20 15:47 09/06/20 16:33 Temperature 36.6 C Temperature Source Oral Pulse Rate 108 H Pulse Rate [Apical] 103 H Pulse Rate from SpO2 Sensor Pulse Rhythm [Apical] Regular Respiratory Rate 21 26 H Respiratory Effort / Characteristics Spontaneous Spontaneous Respiratory Depth Normal Respiratory Pattern Regular Regular Regular Blood Pressure 146/76 H Blood Pressure [Left Arm] 139/78 Blood Pressure Mean 99 Blood Pressure Mean [Left Arm] 98 Blood Pressure Position [Left Arm] Sitting Pulse Oximetry 97 97 Oxygen Delivery Method Room Air Room Air Room Air Oxygen Flow Rate 0 Sepsis Recent Fever Within 48 Hours No Sepsis New/Unexplained Change in Mental Status No Sepsis Action Taken by Nursing No Action Required 09/06/20 17:00 09/06/20 17:30 09/06/20 18:00 Temperature Temperature Source Pulse Rate 108 H 113 H 112 H Pulse Rate [Apical] Pulse Rate from SpO2 Sensor 109 H 113 H 110 H Pulse Rhythm [Apical] Respiratory Rate 32 H 29 H 29 H Respiratory Effort / Characteristics Respiratory Depth Respiratory Pattern Blood Pressure 145/74 H 165/75 H 146/72 H Blood Pressure [Left Arm] Blood Pressure Mean 118 99 99 Blood Pressure Mean [Left Arm] Blood Pressure Position [Left Arm] Pulse Oximetry 94 96 94 Oxygen Delivery Method Oxygen Flow Rate Sepsis Recent Fever Within 48 Hours Sepsis New/Unexplained Change in Mental Status Sepsis Action Taken by Nursing 09/06/20 18:30 09/06/20 18:31 09/06/20 19:00 Temperature Temperature Source Pulse Rate 115 H 119 H Pulse Rate [Apical] Pulse Rate from SpO2 Sensor 115 H 117 H Pulse Rhythm [Apical] Respiratory Rate 28 H 29 H Respiratory Effort / Characteristics Respiratory Depth Respiratory Pattern Blood Pressure 157/73 H 174/78 H Blood Pressure [Left Arm] Blood Pressure Mean 81 115 Blood Pressure Mean [Left Arm] Blood Pressure Position [Left Arm] Pulse Oximetry 94 96 Oxygen Delivery Method Oxygen Flow Rate Sepsis Recent Fever Within 48 Hours Sepsis New/Unexplained Change in Mental Status Sepsis Action Taken by Nursing 09/06/20 19:30 Temperature Temperature Source Pulse Rate 108 H Pulse Rate [Apical] Pulse Rate from SpO2 Sensor Pulse Rhythm [Apical] Respiratory Rate 28 H Respiratory Effort / Characteristics Respiratory Depth Respiratory Pattern Blood Pressure Blood Pressure [Left Arm] Blood Pressure Mean Blood Pressure Mean [Left Arm] Blood Pressure Position [Left Arm] Pulse Oximetry Oxygen Delivery Method Oxygen Flow Rate Sepsis Recent Fever Within 48 Hours Sepsis New/Unexplained Change in Mental Status Sepsis Action Taken by Nursing Laboratory Data Result diagrams: 09/06/20 16:47 09/06/20 16:47 Lab Results 09/06/20 09/06/20 09/06/20 Range/Units 16:47 16:47 16:47 WBC 5.62 (4.8-10.8) K/uL RBC 2.47 L (4.2-5.4) M/uL Hgb 8.2 L (12.0-16.0) g/dL Hct 25.3 L (37-47) % MCV 102.4 H (80-100) fL MCH 33.2 (25-34) pg MCHC 32.4 (32-36) g/dL RDW Std Deviation 84.0 H (36.4-46.3) fL RDW Coeff of Harish 22.9 H (11.5-14.5) % Plt Count 70 L (130-400) K/uL Absolute Nucleated RBC 0.27 H (0-0) K/uL Nucleated RBC % (auto) 4.8 % Neutrophils % (Manual) 39.0 % Lymphocytes % (Manual) 20.9 % Monocytes % (Manual) 26.1 % Eosinophils % (Manual) 0.9 % Basophils % (Manual) 0.9 % Blast Cells % (Manual) 12.2 % Neutrophils # (Manual) 2.19 (1.4-6.5) K/uL Total Absolute Neuts 2.19 (1.4-6.5) K/uL Lymphocytes # (Manual) 1.17 L (1.2-3.4) K/uL Total Abs Lymphocytes 1.17 L (1.2-3.4) K/uL Monocytes # (Manual) 1.47 H (0.11-0.59) K/uL Eosinophils # (Manual) 0.05 (0-0.5) K/uL Basophils # (Manual) 0.05 (0-0.2) K/uL Blast Cells # (Man) 0.69 H (0-0) K/uL Hypogranular Neuts 1+ Dohle Bodies 1+ Platelet Estimate Decreased L (Normal) Giant Platelets 1+ Anisocytosis Present PT 12.6 H (9.0-12.0) Seconds INR 1.2 H (0.9-1.1) APTT 27.8 (21.0-31.0) Seconds PTT Ratio 1.0 Sodium 133 L (136-145) mmol/L Potassium 3.4 L (3.5-5.1) mmol/L Chloride 100 (98-107) mmol/L Carbon Dioxide 24 (21-32) mmol/L Anion Gap 9.0 (3-11) BUN 16 (7-18) mg/dl Creatinine 0.77 (0.6-1.2) mg/dl Est Cr Clr Drug Dosing 71.6 ml/min Est GFR ( Amer) 87.5 Est GFR (Non-Af Amer) 75.5 BUN/Creatinine Ratio 20.8 H (10-20) Glucose 129 H (70-99) mg/dl Calcium 8.0 L (8.5-10.1) mg/dl Total Bilirubin 0.6 (0.2-1) mg/dl AST 15 (15-37) U/L ALT 35 (12-78) U/L Alkaline Phosphatase 126 H (45-117) U/L Troponin I < 0.015 (0-0.045) ng/ml NT-Pro-B Natriuret Pep 375 (0-900) pg/ml Total Protein 6.5 (6.4-8.2) gm/dl Albumin 2.7 L (3.4-5.0) gm/dl Globulin 3.8 (2.5-4.0) gm/dl Albumin/Globulin Ratio 0.7 L (0.9-2) 09/06/20 Range/Units 16:47 WBC (4.8-10.8) K/uL RBC (4.2-5.4) M/uL Hgb (12.0-16.0) g/dL Hct (37-47) % MCV (80-100) fL MCH (25-34) pg MCHC (32-36) g/dL RDW Std Deviation (36.4-46.3) fL RDW Coeff of Harish (11.5-14.5) % Plt Count (130-400) K/uL Absolute Nucleated RBC (0-0) K/uL Nucleated RBC % (auto) % Neutrophils % (Manual) % Lymphocytes % (Manual) % Monocytes % (Manual) % Eosinophils % (Manual) % Basophils % (Manual) % Blast Cells % (Manual) % Neutrophils # (Manual) (1.4-6.5) K/uL Total Absolute Neuts (1.4-6.5) K/uL Lymphocytes # (Manual) (1.2-3.4) K/uL Total Abs Lymphocytes (1.2-3.4) K/uL Monocytes # (Manual) (0.11-0.59) K/uL Eosinophils # (Manual) (0-0.5) K/uL Basophils # (Manual) (0-0.2) K/uL Blast Cells # (Man) (0-0) K/uL Hypogranular Neuts Dohle Bodies Platelet Estimate (Normal) Giant Platelets Anisocytosis PT (9.0-12.0) Seconds INR (0.9-1.1) APTT (21.0-31.0) Seconds PTT Ratio Sodium (136-145) mmol/L Potassium (3.5-5.1) mmol/L Chloride (98-107) mmol/L Carbon Dioxide (21-32) mmol/L Anion Gap (3-11) BUN (7-18) mg/dl Creatinine (0.6-1.2) mg/dl Est Cr Clr Drug Dosing ml/min Est GFR ( Amer) Est GFR (Non-Af Amer) BUN/Creatinine Ratio (10-20) Glucose (70-99) mg/dl Calcium (8.5-10.1) mg/dl Total Bilirubin (0.2-1) mg/dl AST (15-37) U/L ALT (12-78) U/L Alkaline Phosphatase (45-117) U/L Troponin I (0-0.045) ng/ml NT-Pro-B Natriuret Pep Cancelled (0-900) pg/ml Total Protein (6.4-8.2) gm/dl Albumin (3.4-5.0) gm/dl Globulin (2.5-4.0) gm/dl Albumin/Globulin Ratio (0.9-2) Administered Medications Aspirin (Aspirin 81 Mg Ectab) 81 mg PO BID GINA Stop: 10/06/20 20:59 Last Admin: 09/06/20 21:21 Dose: 81 mg Documented by: [id number] Enoxaparin Sodium (Enoxaparin Inj 40 Mg/0.4 Ml Syr) 40 mg SQ Q24H GINA Stop: 10/06/20 20:59 Last Admin: 09/06/20 21:26 Dose: 40 mg Documented by: [id number] Haloperidol (Haloperidol 1 Mg Tab) 1 mg PO HS GINA Stop: 10/06/20 20:59 Last Admin: 09/06/20 21:21 Dose: 1 mg Documented by: [id number] Nortriptyline HCl (Nortriptyline Hcl 25 Mg Cap) 100 mg PO HS GINA Stop: 10/06/20 20:59 Last Admin: 09/06/20 21:22 Dose: 100 mg Documented by: [id number] Discontinued Medications Furosemide (Furosemide 40 Mg/4 Ml Vial) 40 mg IV NOW STA Stop: 09/06/20 18:25 Last Admin: 09/06/20 18:49 Dose: 40 mg Documented by: [id number] Ioversol (Optiray 320 125ml) 120 ml IV ONCE ONE Stop: 09/06/20 20:27 Last Admin: 09/06/20 20:27 Dose: 120 ml Documented by: [id number] Potassium Chloride (Potassium Chloride 20 Meq Tabcr) 50 meq PO NOW STA Stop: 09/06/20 20:47 Last Admin: 09/06/20 21:25 Dose: 50 meq Documented by: [id number] Discharge Plan Visit Data Chief Complaint: Shortness of Breath/Dyspnea Stated Complaint: SOB & RETAINING FLUID ED Provider: Lucian Lazar Discharge Problem: Congestive heart failure, Edema, Tachycardia, MDS/MPN (myelodysplastic/myeloproliferative neoplasms) Patient Disposition: Admitted As Inpatient Discharge Instructions Interventions: ED Discharge Assessment Last Done: 09/06/20 20:16 Discharge Problem: Congestive heart failure Qualifiers: Heart failure type: unspecified Heart failure chronicity: unspecified Qualified Code(s): I50.9 - Heart failure, unspecified Edema Qualifiers: Edema type: unspecified Qualified Code(s): R60.9 - Edema, unspecified
--- NOTE | 2020-09-06 17:02 | XRay Report ---
XR chest 1V portable CLINICAL HISTORY: Shortness of breath COMPARISON STUDY: July 2018 FINDINGS: The heart is the upper limits of normal in size. There is aortic tortuosity. There is diffu se elevation of interstitium. Diagnostic considerations include pulmonary edema versus a bilateral in terstitial infectious/inflammatory process. Clinical and radiographic follow-up is recommended. There are no pleural effusions.[ IMPRESSION: 1. Diffuse elevation of the interstitium. Pulmonary edema versus a bilateral interstitial infectious/ inflammatory process. Clinical and radiographic follow-up recommended. ACT 112: Negative or not required by law. Electronically signed by: Meir Deluca M.D. 09/06/2020 5:00 PM
[2020-09-06 17:15] LABS: Alanine Aminotransferase 35 U/L (12-78); Albumin Level 2.7 gm/dl (3.4-5.0); Aspartate Aminotransferase 15 U/L (15-37); BUN Creatinine Ratio 20.8 (10-20); Blood Urea Nitrogen 16 mg/dl (7-18); Carbon Dioxide 24 mmol/L (21-32); Chloride 100 mmol/L (98-107); Creatinine Clr Calc Pharmacy 71.6 ml/min; Est GFR (African American) 87.5; Est GFR (Non-African American) 75.5; Glucose 129 mg/dl (70-99); Potassium 3.4 mmol/L (3.5-5.1); Sodium 133 mmol/L (136-145)
[2020-09-06 17:16] LABS: INR 1.2 (0.9-1.1); Partial Thromboplastin Time 27.8 Seconds (21.0-31.0); Prothrombin Time 12.6 Seconds (9.0-12.0)
[2020-09-06 17:26] LABS: Albumin Globulin Ratio 0.7 (0.9-2); Alkaline Phosphatase 126 U/L (45-117); Bilirubin,Total 0.6 mg/dl (0.2-1); Globulin 3.8 gm/dl (2.5-4.0); Hematocrit (blood only) 25.3 % (37-47); Hemoglobin 8.2 g/dL (12.0-16.0); Mean Corpuscular Hemoglobin 33.2 pg (25-34); Mean Corpuscular Hgb Conc 32.4 g/dL (32-36); Mean Corpuscular Volume 102.4 fL (80-100); NT Pro B Type Natriuretic Pept 375 pg/ml (0-900); Nucleated RBC # (auto) 0.27 K/uL (0-0); Nucleated RBC % (auto) 4.8 %; Platelet Count 70 K/uL (130-400); RDW Coefficient of Variation 22.9 % (11.5-14.5); Red Blood Count 2.47 M/uL (4.2-5.4); Total Protein 6.5 gm/dl (6.4-8.2); Troponin I < 0.015 ng/ml (0-0.045); White Blood Count 5.62 K/uL (4.8-10.8)
[2020-09-06 17:27] LABS: ALC (manual) 1.17 K/uL (1.2-3.4); ANC (manual) 2.19 K/uL (1.4-6.5); Anisocytosis Present; Basophils # (manual) 0.05 K/uL (0-0.2); Basophils % (manual) 0.9 %; Blast # (manual) 0.69 K/uL (0-0); Blast Cells % (manual) 12.2 %; Dohle Bodies 1+; Eosinophils # (manual) 0.05 K/uL (0-0.5); Eosinophils % (manual) 0.9 %; Giant Platelets 1+; Hypogranular Neutrophils 1+; Lymphocytes # (manual) 1.17 K/uL (1.2-3.4); Lymphocytes % (manual) 20.9 %; Monocytes # (manual) 1.47 K/uL (0.11-0.59); Monocytes % (manual) 26.1 %; Neutrophils # (manual) 2.19 K/uL (1.4-6.5); Platelet Estimate Decreased (Normal)
[2020-09-06] MEDS ORDERED: FUROSEMIDE 40 MG/4 ML VIAL IV STA (18:24)
--- NOTE | 2020-09-06 19:40 | History & Physical Report ---
Date of Service September 06, 2020 Assessment & Plan (1) Edema: Gradually worsening edema and shortness of breath are concerning for CHF. Last echo was in 10/2019 which showed EF 65-70% and no mention of LVH. - Continue Lasix 40 mg IV daily - Monitor weights and I&Os - Repeat TTE (2) Tachycardia: Could be due to stress/anxiety from shortness of breath or CHF exacerbation, but her Well's score for PE is 5.5 (PE being possible diagnosis, HR>100, and malignancy). - CTA chest PE protocol - Monitor on telemetry (3) MDS/MPN (myelodysplastic/myeloproliferative neoplasms): Follows with Dr. Ramirez and Lita Jaime at [place]. Per prior notes, she has actually had thrombocytosis at times and was on hydroxyurea. Presently with thrombocytopenia. - Oncology consult - Peripheral smear in the AM (4) Hypertension: BP is 175/80 in the ED. - Continue home amlodipine - Hold HCTZ/spironolactone for Lasix diuresis (5) Depression: Remote depression with psychotic features. - Continue home Haldol HS & nortriptyline (6) DVT prophylaxis: Lovenox 40 mg SQ daily History of Present Illness Primary Care Provider: Rebecca Heard MD 74yo F w/ hx of myeloproliferative/myelodysplastic neoplasm which was diagnosed on bone marrow biopsy in 12/2019. She reports that she has been not feeling well for at least 3-4 weeks. She had an upper URI diagnosed in late July and was on antibiotics. Since that time, she has noted further shortness of breath and also gradually increasing leg swelling. She reports an acute increase in her shortness of breath today. She denies any fevers/chills/sweats. She denies any cough. Her myeloproliferative/myelodysplastic neoplasm has had a complex treatment plan, and it seems she follows with Dr. Ramirez and another [place] oncologist. She was on hydroxyurea at some point for thrombocytosis; however, at present she has thrombocytopenia. Allergies Allergy/AdvReac Type Severity Reaction Status Date / Time latex Allergy Unknown RASH FROM Verified 09/06/20 17:43 LATEX GLOVES Home Medications Home Medications Medication Instructions Recorded Confirmed Type aspirin [Aspir-81] 1 tab PO BID 07/12/18 09/06/20 History cholecalciferol (vitamin D3) 2,000 unit PO QAM 07/12/18 09/06/20 History [Vitamin D3] multivitamin 1 tab PO DAILY 06/14/19 09/06/20 History amoxicillin 500 mg capsule 2,000 mg PO ONCE PRN #4 cap 12/30/19 09/06/20 Rx ibandronate 150 mg tablet 150 mg PO MONTHLY #3 tab 01/20/20 09/06/20 Rx haloperidol 0.5 mg tablet 1 mg PO HS #180 tab 03/05/20 09/06/20 Rx potassium chloride 8 mEq 8 meq PO DAILY 03/30/20 09/06/20 History capsule,extended release nortriptyline 50 mg capsule 100 mg PO HS #60 cap 04/02/20 09/06/20 Rx spironolactone 25 1 tab PO DAILY #90 tab 06/04/20 09/06/20 Rx mg-hydrochlorothiazide 25 mg tablet amlodipine 2.5 mg tablet 2.5 mg PO DAILY #90 tab 07/04/20 09/06/20 Rx raloxifene 60 mg tablet 60 mg PO DAILY #90 tab 07/04/20 09/06/20 Rx cyanocobalamin (vitamin B-12) 1,000 mcg PO DAILY 09/06/20 09/06/20 History [Vitamin B-12] Past Med/Surg History Medical History Depression GERD (gastroesophageal reflux disease) H/O transfusion of whole blood after LTHA 07/2017 Hypertension Major depression with psychotic features h/o hospitalization in 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 Surgical History History of revision of total replacement of left hip joint Hx of colonoscopy Hx of total hysterectomy with removal of both tubes and ovaries Status post left hip replacement Family History Father Congestive heart failure Hypertension Cardiac disorder Mother Myocardial infarction Hypertension Cardiac disorder Brother Hypertension Denies family history of Ovarian cancer Prostate cancer Bipolar disorder Colorectal cancer Social History Smoking Status: Never smoker Second Hand Exposure: Yes; Hx Alcohol Use: No Hx Substance Use: No Preferred Language: Mauritanian Communication Ability: Effective Dispute Resolution Specialist Required: No Beliefs That Will Affect Care: None and Christian Christian Beliefs: PREFERS COMMUNICATIONS DEPARTMENT CHAIRPERSON TO COME IN AND PRAY WITH HER PRIOR TO OPERATION marital status: Current Living Situation: Alone current occupational status: retired Feels Safe at Home: Yes Dental Care, Regularly: Yes Physical Activity Frequency: Does not Exercise Seatbelt Use: always Sunscreen Use: Yes Assistive Devices: Glasses and Walker Review of Systems Review of Systems: All systems reviewed & are unremarkable except as noted in HPI & below Physical Exam Constitutional: WD/WN, vitals as above Eyes: EOM intact bilaterally; no conjunctival abnormality ENMT: external ear and nose normal, oropharynx normal Neck: trachea midline, no thyromegaly normal visual inspection Respiratory: + labored breathing and + tachypneic; no respiratory distress and no cough Auscultation: lungs clear to auscultation bilaterally Cardiovascular: Rate/Rhythm: + tachycardic Heart Sounds: normal S1 and normal S2 Extremities: + edema Gastrointestinal (Abdomen): Inspection/Auscultation: abdomen normal to inspection; abdomen not distended Musculoskeletal: no cyanosis or clubbing, extremities motor strength 5/5 Skin: no rashes, warm and dry Neurologic: moves all extremities and awake Psychiatric: Orientation: alert, oriented to person and cooperative Results & Data Results & Data ([facility]) Vital Signs (Past 12 Hours) Vital Signs Temp Pulse Pulse Resp BP BP Pulse Ox 09/06/20 18:31 119 H 29 H 96 09/06/20 18:30 115 H 28 H 157/73 H 94 09/06/20 18:00 112 H 29 H 146/72 H 94 09/06/20 17:30 113 H 29 H 165/75 H 96 09/06/20 17:00 108 H 32 H 145/74 H 94 09/06/20 16:33 103 H 26 H 139/78 97 09/06/20 15:41 36.6 C 108 H 21 146/76 H 97 Code Status & VTE Plan VTE Prophylaxis Plan VTE Prophylaxis will be ordered: Yes PG Care Time/CCT Total # of Minutes Spent Total Time Spent with Patient: Total time spent is greater than 50% in coordination of care (as documented) at patient's floor/unit and/or counseling patient: Coding Level of Care Code 51778 Initial Inpt Care Lvl 3 Diagnoses Edema R60.9 Tachycardia R00.0 MDS/MPN (myelodysplastic/myeloproliferative neoplasms) D46.9 Hypertension I10 Depression F32.9 DVT prophylaxis Z29.9
[2020-09-06] MEDS ORDERED: OPTIRAY 320 125ml IV ONE (20:26)
--- NOTE | 2020-09-06 20:44 | CT Scan Report ---
CT ANGIOGRAM OF THE CHEST CLINICAL HISTORY: Atypical chest pain and leg swelling. Possible pulmonary embolism. COMPARISON STUDY: S x-ray dated 09/06/2020 TECHNIQUE: Following the IV administration of 119 mL of Optiray-320, CT angiogram of the thorax was p erformed from the thoracic inlet to the lung bases utilizing the pulmonary embolus protocol. Images a re reviewed in the axial, sagittal, and coronal planes. IV contrast was administered without complica tion. MIP imaging was performed. A dose lowering technique was utilized adhering to the principles o f ALARA. CT DOSE: 452.97 mGy.cm FINDINGS: There is no pathologic mediastinal lymphadenopathy. Right hilar nodes are the upper limits of normal in size. There is no axillary lymphadenopathy. The ascending thoracic aorta measures 35 mm. There are coronary artery calcifications. There were no pulmonary artery filling defects to indicate acute pulmonary embolism. No pleural effusions are visualized. There are diffuse bilateral groundglass opacities. This could re present pulmonary edema or a bilateral infectious/inflammatory process. Clinical and radiographic fol low-up is recommended. There is a 1 cm right lobe hepatic hypodensity likely representing a cyst. IMPRESSION: 1. No evidence of acute pulmonary embolism 2. Diffuse bilateral groundglass pulmonary opacities. Diagnostic considerations include pulmonary mark ma versus a diffuse bilateral infectious/inflammatory process. Clinical and radiographic follow-up is recommended. ACT 112: Negative or not required by law. Electronically signed by: Meir Deluca M.D. 09/06/2020 8:43 PM
[2020-09-06] MEDS ORDERED: POTASSIUM CHLORIDE CRTAB 20 MEQ TABCR PO STA (20:46)
[2020-09-06] MEDS: haloperidoL 1 MG TAB PO SCH (21:21)
[2020-09-06] MEDS: ASPIRIN 81 MG ECTAB PO SCH (21:21)
[2020-09-06] MEDS: NORTRIPTYLINE HCL 25 MG CAP PO SCH (21:22)
[2020-09-06] MEDS: ENOXAPARIN INJ 40 MG/0.4 ML SYR SQ SCH (21:26)
[2020-09-06] MEDS: ACETAMINOPHEN 325 MG TAB PO PRN (23:46)
[2020-09-07 06:12] LABS: Hematocrit (blood only) 23.3 % (37-47); Hemoglobin 7.4 g/dL (12.0-16.0); Mean Corpuscular Hemoglobin 32.7 pg (25-34); Mean Corpuscular Hgb Conc 31.8 g/dL (32-36); Mean Corpuscular Volume 103.1 fL (80-100); Nucleated RBC # (auto) 0.21 K/uL (0-0); Nucleated RBC % (auto) 4.2 %; RDW Coefficient of Variation 23.2 % (11.5-14.5); RDW Standard Deviation 84.6 fL (36.4-46.3); Red Blood Count 2.26 M/uL (4.2-5.4); White Blood Count 4.95 K/uL (4.8-10.8)
[2020-09-07 06:38] LABS: BUN Creatinine Ratio 18.2 (10-20); Calcium 7.7 mg/dl (8.5-10.1); Creatinine Clr Calc Pharmacy 72.2 ml/min; Est GFR (African American) 90.4; Magnesium 1.9 mg/dl (1.8-2.4); Potassium 3.7 mmol/L (3.5-5.1)
[2020-09-07 06:42] LABS: Platelet Count 70 K/uL (130-400)
[2020-09-07 06:48] LABS: Platelet Estimate Decreased (Normal)
[2020-09-07] MEDS: amLODIPine BESYLATE 5 MG TAB PO SCH (08:37)
[2020-09-07] MEDS: FUROSEMIDE 40 MG in SYRINGE 0 ML IV SCH (08:37)
[2020-09-07] MEDS: RALOXIFENE HCL 60 MG TAB PO SCH (08:38)
[2020-09-07] MEDS: CYANOCOBALAMIN 500 MCG TABLET (VITAMIN B-12) PO SCH (08:38)
[2020-09-07] MEDS: ASPIRIN 81 MG ECTAB PO SCH ×2 (08:38→20:23)
[2020-09-07] MEDS ORDERED: FUROSEMIDE 40 MG/4 ML VIAL IV SCH (09:00)
[2020-09-07 10:48] LABS: Influenza A virus by PCR Negative (Negative); RSV by PCR Negative (Negative)
[2020-09-07 10:49] LABS: Influenza B virus by PCR Negative (Negative)
--- NOTE | 2020-09-07 11:16 | Consultation Report ---
DATE OF CONSULTATION: 09/07/2020 HISTORY OF PRESENT ILLNESS: The patient is a 74-year-old admitted because of anemia and congestive heart failure. The patient is well known to the hematology service. 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 She presented about a year ago with thrombocytosis. The patient has received several treatments including anagrelide and hydroxyurea, neither of which she is on at the present time. She also received a course of 5-azacitidine over the summer. Platelet count has been well controlled off of all therapy since then. She is receiving erythropoietin 60,000 units subQ weekly for her hemoglobin and hematocrit. Nevertheless, she remains significantly anemic. She has no history of cardiac or cerebrovascular disease. Hemoglobin at present is approximately 7, hematocrit 24. PHYSICAL EXAMINATION: As per hospitalist. IMPRESSION: Congestive heart failure aggravated by the patient's anemia. In view of the known hematological problem, she may be evolving an increased transfusion requirement because of her disease process. Myelodysplasia can cause anemia via several mechanisms including hypoproliferation or ineffective erythropoiesis. She may also be deficient in necessary hematopoietic factor necessary for synthesis such as folic acid in view of increased demands on her bone marrow. Lastly, the patient has had about a dozen transfusions. She perhaps has evolved alloimmunization to blood. If so, conference will need to be arranged with blood bank and have the patient tested for alloantibodies. RECOMMENDATIONS: For now, the following recommendations were made; transfuse 2 units of packed cells. Each unit should be preceded by Lasix 40 mg IV. Folic acid 1 mg a day orally should be started. The patient should have stool guaiacs tested daily for 3 specimens. Blood should be sent off for direct Valerie, reticulocyte count and LDH as well as haptoglobin. A call should be made to the blood bank and an investigation as to whether patient has developed alloimmunization looked into. We will follow along with you.
[2020-09-07] MEDS ORDERED: SODIUM CHLORIDE 0.9% 250 ML IV PRN (13:07)
[2020-09-07] MEDS ORDERED: FUROSEMIDE 40 MG in SYRINGE 0 ML IV ONE (13:30)
[2020-09-07] MEDS ORDERED: ACETAMINOPHEN 500 MG TAB PO ONE (13:30)
[2020-09-07 13:33] LABS: Reticulocyte % 1.1 % (0.5-2.0); Reticulocytes # 0.03 10^6/uL (0.02-0.10)
--- NOTE | 2020-09-07 13:45 | XCELERA ---
[id number]
[2020-09-07] MEDS: guaiFENesin 600 MG TABCR PO SCH ×2 (14:14→20:22)
[2020-09-07] MEDS: FOLIC ACID 1 MG TAB PO SCH (14:14)
--- NOTE | 2020-09-07 15:23 | Ultrasound Report ---
BILATERAL LOWER EXTREMITY VENOUS DOPPLER CLINICAL HISTORY: severe edema; eval DVT COMPARISON STUDY: No previous studies for comparison. TECHNIQUE: Sonography of the deep venous system of the bilateral lower extremities was performed. Co mpression and augmentation were evaluated. FINDINGS: This exam was technically difficult due to lower extremity edema. The bilateral common femo ral, superficial femoral and popliteal veins were compressible. Augmentation was normal. Flow was toño wn within the deep calf vessels. IMPRESSION: Technically difficult exam but evidence of deep venous thrombus within the bilateral lowe r extremities. ACT 112: Negative or not required by law. Electronically signed by: Renzo Heard M.D. 09/07/2020 3:22 PM
--- NOTE | 2020-09-07 18:26 | Electrocardiogram Report ---
Test Reason : Blood Pressure : / mmHG Vent. Rate : 113 BPM Atrial Rate : 113 BPM P-R Int : 160 ms QRS Dur : 078 ms QT Int : 332 ms P-R-T Axes : 040 013 049 degrees QTc Int : 455 ms Poor data quality, interpretation may be adversely affected Sinus tachycardia Low voltage QRS Borderline ECG When compared with ECG of 23-JUL-2018 11:27, No significant change was found Confirmed by Bridger Kwong ([id number]) on 09/07/2020 6:26:25 PM Referred By: Rebecca Heard Confirmed By:Eagle Kwong
[2020-09-07] MEDS: haloperidoL 1 MG TAB PO SCH (20:21)
[2020-09-07] MEDS: NORTRIPTYLINE HCL 25 MG CAP PO SCH (20:21)
[2020-09-07] MEDS: ENOXAPARIN INJ 40 MG/0.4 ML SYR SQ SCH (20:24)
--- NOTE | 2020-09-07 20:51 | Hospitalist Progress Note ---
Date of Service September 07, 2020 Assessment & Plan (1) Acute diastolic CHF (congestive heart failure): significant volume overload. echo findings reviewed; preserved LV/RV function. thus diastolic in nature. continue lasix IV. fluid restrict. salt restrict. daily BMP. daily standing scale weights. (2) Abnormal chest CT: Diffuse b/l infiltrates. CHF vs atypical infection vs combination of those 2. COVID-19, flu, RSV negative. Has been sick with "Bronchitis" x 5 weeks. Check mycoplasma titers. Check legionella urine ag. Start doxy for atypical coverage. Diurese. Consider repeat COVID if any additional fever. (3) MDS/MPN (myelodysplastic/myeloproliferative neoplasms): Followed by [facility] and [facility] locally. Appreciate heme/onc consult and recs. Tx 1 unit PRBCs today. Hemolytic w/u ordered as requested by oncology. Start folate 1 mg daily. Daily CBC. Transfusion-dependent. Peripheral smear findings noted. (4) Anemia: Tx 1 unit today, then 1 unit tomorrow (to avoid making volume overload worse). CBC in am. Start folate 1mg daily. (5) Tachycardia: Check TSH in am. Tachycardia may be 2nd to SIRS vs anemia vs combination of factors. Cont tele status. Echo findings noted. (6) Edema: Check dopplers r/o DVT. If negative this is due to volume overload state. (7) Depression: Cont home meds. (8) Hypertension: Cont home meds. Titrate as needed. (9) GERD (gastroesophageal reflux disease): (10) Thrombocytopenia: Chronic issue. Previously actually had thrombocytosis treated with hydroxyurea - no off of such. Appreciate heme/onc consult. Daily CBC. Use lovenox for DVT proph cautiously. (11) DVT prophylaxis: lovenox daily will need PT/OT matias brother was updated by phone this evening Admission and Anticipated Discharge Date Admission Date: September 06, 2020 Subjective tele overnight with sinus tach. patient feels modestly better than yesterday. she reports having been dx with bronchitis about 4-5 weeks ago. records show she was prescribed a cephalosporin x 10 days and had negative COVID testing about August 02. she states that she never full recovered from that illness and continues to cough and have dyspnea. had low-grade fever early in that illness and had low-grade temp last night. no sore throat or nasal congestion. no loss of taste or smell. no travel. no sick contacts. just had PRBCs about 2 weeks ago c/o Dr Ramirez at [facility]. has tolerated the PRBCs in the past. LE edema continues to worsen. Review of Systems Constitutional: + fatigue; no chills and no anorexia (ate 100% of breakfast) Respiratory: + cough; no sputum production and no wheezing Cardiovascular: no chest pain Gastrointestinal: no abdominal pain Physical Exam Constitutional: well developed and well nourished; no acute distress and no altered mental status Eyes: ecchymoses around left eye from trauma ENMT: external ear and nose normal, oropharynx normal Respiratory: no respiratory distress Auscultation: + diminished lung sounds (mild - bases); no crackles and no wheezes Cardiovascular: Rate/Rhythm: regular rhythm and + tachycardic Heart Sounds: normal S1, normal S2 and + murmur (1/6 systolic LSB) Vessels: + JVD, posterior tibial pulses present and dorsalis pedis pulses present Extremities: + edema (severe, 3+ b/l (maybe slightly worse on right)) Gastrointestinal (Abdomen): normal bowel sounds, soft, nontender, no hepatosplenomegaly Skin: minimal erythema mid medial bill on left Psychiatric: A+Ox3, euthymic affect Results & Data Results & Data ([facility]) Vital Signs (Past 12 Hours) Vital Signs Temp Pulse Pulse Resp BP BP BP 09/07/20 19:32 36.8 C 115 H 17 131/69 09/07/20 18:04 37.4 C 109 H 18 122/68 09/07/20 17:01 37.2 C 107 H 18 123/60 09/07/20 16:30 37.0 C 106 H 20 135/72 09/07/20 16:00 37.0 C 100 H 20 121/61 09/07/20 15:48 37.3 C 99 H 20 109/61 09/07/20 15:42 110 H 09/07/20 15:32 37.1 C 103 H 20 126/56 L 09/07/20 15:06 36.9 C 110 H 18 119/58 L 09/07/20 11:28 36.8 C 105 H 18 134/68 Pulse Ox 09/07/20 19:32 91 09/07/20 18:04 90 09/07/20 17:01 94 09/07/20 16:30 94 09/07/20 16:00 91 09/07/20 15:48 94 09/07/20 15:42 09/07/20 15:32 91 09/07/20 15:06 91 09/07/20 11:28 93 Laboratory Results Laboratory Results - last 24 hr 09/06/20 09/06/20 09/07/20 23:06 23:06 05:23 WBC 4.95 RBC 2.26 L Hgb 7.4 L Hct 23.3 L MCV 103.1 H MCH 32.7 MCHC 31.8 L RDW Std Deviation 84.6 H RDW Coeff of Harish 23.2 H Plt Count 70 L Reticulocyte % (Auto) Reticulocyte # Absolute Nucleated RBC 0.21 H Nucleated RBC % (auto) 4.2 Platelet Estimate Decreased L Peripher Smr Path Cons Haptoglobin Sodium Potassium Chloride Carbon Dioxide Anion Gap BUN Creatinine Est Cr Clr Drug Dosing Est GFR ( Amer) Est GFR (Non-Af Amer) BUN/Creatinine Ratio Glucose Calcium Magnesium Lactate Dehydrogenase COVID-19 Eval Order Covid19 Done at [facility] COVID-19 PCR NEGATIVE Influ A Molecular Assay Influ B Molecular Assay RSV (Molecular) Blood Type Antibody Screen Direct Antiglob Test JAN (IgG-AHG) JAN, Polyspecific JAN C3b, C3d 5 Min Crossmatch 09/07/20 09/07/20 09/07/20 05:23 09:42 13:16 WBC RBC Hgb Hct MCV MCH MCHC RDW Std Deviation RDW Coeff of Harish Plt Count Reticulocyte % (Auto) Reticulocyte # Absolute Nucleated RBC Nucleated RBC % (auto) Platelet Estimate Peripher Smr Path Cons Haptoglobin Sodium 135 L Potassium 3.7 Chloride 101 Carbon Dioxide 26 Anion Gap 8.0 BUN 14 Creatinine 0.75 Est Cr Clr Drug Dosing 72.2 Est GFR ( Amer) 90.4 Est GFR (Non-Af Amer) 78.0 BUN/Creatinine Ratio 18.2 Glucose 123 H Calcium 7.7 L Magnesium 1.9 Lactate Dehydrogenase COVID-19 Eval Order COVID-19 PCR Influ A Molecular Assay Negative Influ B Molecular Assay Negative RSV (Molecular) Negative Blood Type B Negative Antibody Screen NEGATIVE Direct Antiglob Test Negative JAN (IgG-AHG) Neg JAN, Polyspecific Neg JAN C3b, C3d 5 Min Neg Crossmatch See Detail 09/07/20 09/07/20 09/07/20 13:16 13:16 13:16 WBC RBC Hgb Hct MCV MCH MCHC RDW Std Deviation RDW Coeff of Harish Plt Count Reticulocyte % (Auto) 1.1 Reticulocyte # 0.03 Absolute Nucleated RBC Nucleated RBC % (auto) Platelet Estimate Peripher Smr Path Cons Haptoglobin Pending Sodium Potassium Chloride Carbon Dioxide Anion Gap BUN Creatinine Est Cr Clr Drug Dosing Est GFR ( Amer) Est GFR (Non-Af Amer) BUN/Creatinine Ratio Glucose Calcium Magnesium Lactate Dehydrogenase 290 H COVID-19 Eval Order COVID-19 PCR Influ A Molecular Assay Influ B Molecular Assay RSV (Molecular) Blood Type Antibody Screen Direct Antiglob Test JAN (IgG-AHG) JAN, Polyspecific JAN C3b, C3d 5 Min Crossmatch PG Care Time/CCT Total # of Minutes Spent Total Time Spent with Patient: Total time spent is greater than 50% in coordination of care (as documented) at patient's floor/unit and/or counseling patient: Coding Level of Care Code 68149 Subseq Hosp Care Lvl 3 Diagnoses Acute diastolic CHF (congestive heart failure) I50.[address] R93.89 MDS/MPN (myelodysplastic/myeloproliferative neoplasms) D46.9 Anemia D64.9 Tachycardia R00.0 Edema R60.9 Edema type: unspecified Depression F32.9 Hypertension I10 GERD (gastroesophageal reflux disease) K21.9 Thrombocytopenia D69.6 DVT prophylaxis Z29.9 (1) Edema Edema type: unspecified Qualified Code(s): R60.9 - Edema, unspecified
[2020-09-07] MEDS: DOXYCYCLINE HYCLATE 100 MG CAP PO SCH (21:37)
[2020-09-08 07:47] LABS: BUN Creatinine Ratio 20.5 (10-20); Calcium 7.3 mg/dl (8.5-10.1); Est GFR (African American) 103.3; Est GFR (Non-African American) 89.2; Potassium 3.1 mmol/L (3.5-5.1)
[2020-09-08 08:02] LABS: Thyroid Stimulating Hormone 2.56 uIu/ml (0.300-4.500)
[2020-09-08 08:10] LABS: Hematocrit (blood only) 25.5 % (37-47); Hemoglobin 8.3 g/dL (12.0-16.0); Mean Corpuscular Hemoglobin 32.7 pg (25-34); Mean Corpuscular Hgb Conc 32.5 g/dL (32-36); Mean Corpuscular Volume 100.4 fL (80-100); Nucleated RBC # (auto) 0.17 K/uL (0-0); Nucleated RBC % (auto) 3.1 %; Platelet Count 62 K/uL (130-400); Platelet Estimate Decreased (Normal); RDW Coefficient of Variation 21.9 % (11.5-14.5); RDW Standard Deviation 78.7 fL (36.4-46.3); Red Blood Count 2.54 M/uL (4.2-5.4); White Blood Count 5.57 K/uL (4.8-10.8)
[2020-09-08] MEDS ORDERED: ACETAMINOPHEN 500 MG TAB PO ONE (08:46)
[2020-09-08] MEDS ORDERED: SODIUM CHLORIDE 0.9% 250 ML IV PRN (08:46)
[2020-09-08] MEDS: FUROSEMIDE 40 MG in SYRINGE 0 ML IV SCH (08:55)
[2020-09-08] MEDS: POTASSIUM CHLORIDE CRTAB 20 MEQ TABCR PO SCH ×3 (08:55→20:55)
[2020-09-08] MEDS: RALOXIFENE HCL 60 MG TAB PO SCH (08:56)
[2020-09-08] MEDS: guaiFENesin 600 MG TABCR PO SCH ×2 (08:56→20:54)
[2020-09-08] MEDS: FOLIC ACID 1 MG TAB PO SCH (08:56)
[2020-09-08] MEDS: DOXYCYCLINE HYCLATE 100 MG CAP PO SCH (08:56)
[2020-09-08] MEDS: amLODIPine BESYLATE 5 MG TAB PO SCH (08:56)
[2020-09-08] MEDS: MAGNESIUM OXIDE 400 MG TAB PO SCH ×2 (08:56→20:55)
[2020-09-08] MEDS: ASPIRIN 81 MG ECTAB PO SCH (08:57)
[2020-09-08] MEDS: CYANOCOBALAMIN 500 MCG TABLET (VITAMIN B-12) PO SCH (08:57)
[2020-09-08] MEDS: ONDANSETRON INJ 2 MG/ML 2 ML VIAL IV PRN (09:06)
[2020-09-08] MEDS: DOXYCYCLINE HYCLATE 100 MG in DEXTROSE 5% 100 ML IV SCH ×2 (10:23→21:20)
[2020-09-08] MEDS ORDERED: FUROSEMIDE 40 MG in SYRINGE 0 ML IV ONE (13:30)
--- NOTE | 2020-09-08 19:36 | Hospitalist Progress Note ---
Date of Service September 08, 2020 Assessment & Plan (1) Acute diastolic CHF (congestive heart failure): maybe modest improvement. continue lasix IV - give first dose this am, then another dose post-PRBCs. fluid restrict. salt restrict. daily BMP. daily standing scale weights. echo findings noted. ideally should be on beta arabella. plan to start tomorrow am. (2) Abnormal chest CT: Diffuse b/l infiltrates. CHF vs atypical infection vs combination of those 2. COVID-19, flu, RSV negative. Has been sick with "Bronchitis" x 5 weeks. Mycoplasma titers and legionella urine ag pending. Continue doxycycline for atypical coverage. Continue diuresis. Consider repeat COVID testing if any additional fever. (3) MDS/MPN (myelodysplastic/myeloproliferative neoplasms): Followed by [facility] and [facility] locally. Appreciate heme/onc consult and recs. s/p 1 unit PRBCs yesterday. Will give additional unit today. Follow the unit with IV lasix. Hemolytic w/u negative. Daily CBC. Cont folate supplementation. (4) Anemia: s/p 1 unit PRBCs 09/07. 2nd unit today. CBC in am. Folate 1mg daily. (5) Tachycardia: TSH wnl. Tachycardia may be 2nd to SIRS vs anemia vs decompensated CHF vs combination of factors. Cont tele status. Echo findings noted. (6) Edema: Dopplers neg for DVT b/l. Cont IV diuretics. Edema 2nd to acute diastolic CHF. (7) Depression: Cont home meds. (8) Hypertension: Cont home meds. (9) GERD (gastroesophageal reflux disease): will place on protonix (10) Thrombocytopenia: Chronic issue. Previously actually had thrombocytosis treated with hydroxyurea. Appreciate heme/onc consult. Daily CBC. Use lovenox for DVT proph cautiously. HOLD aspirin. (11) Hypokalemia: replace, repeat BMP and mag in am. (12) Hyponatremia: 2nd diuresis. BMP in am. (13) DVT prophylaxis: lovenox daily brother updated by phone 09/07/20 Admission and Anticipated Discharge Date Admission Date: September 06, 2020 Subjective called this am by nursing staff that patient vomited after eating breakfast and taking her AM medications. she vomited just once and nausea improved following antiemetics. feels somewhat better but still overall quite ill-feeling. cough remains. nonproductive/no sputum. no dyspnea at rest. still w/ orthopnea. dyspnea with exertion is better. denies abdominal pain. no fevers overnight. tele - sinus tach. Review of Systems Constitutional: + weakness; no fever and no body aches Respiratory: + cough and + dyspnea on exertion; no hemoptysis Cardiovascular: no chest pain Gastrointestinal: + nausea and + vomiting; no abdominal pain Physical Exam Constitutional: well developed and well nourished; no acute distress and no altered mental status ENMT: external ear and nose normal, oropharynx normal Respiratory: no respiratory distress Auscultation: + diminished lung sounds (minimal - bases); no crackles and no wheezes Cardiovascular: Rate/Rhythm: regular rhythm and + tachycardic Heart Sounds: normal S1, normal S2 and + murmur (1/6 systolic LSB) Vessels: + JVD, posterior tibial pulses present and dorsalis pedis pulses present Extremities: + edema (3+ b/l -- no change ) Gastrointestinal (Abdomen): normal bowel sounds, soft, nontender, no hepatosplenomegaly Skin: mild erythema left medial distal leg but no cellulitis; minimal erythema right forearm Psychiatric: A+Ox3, euthymic affect Results & Data Results & Data ([facility]) Vital Signs (Past 12 Hours) Vital Signs Temp Pulse Pulse Resp BP BP BP 09/08/20 19:00 37.2 C 111 H 18 136/69 09/08/20 15:20 36.9 C 98 H 18 127/70 09/08/20 11:31 37.3 C 95 H 18 119/69 09/08/20 11:00 37.1 C 100 H 18 113/68 09/08/20 10:31 37.2 C 100 H 18 114/68 09/08/20 10:13 37.0 C 102 H 18 122/67 09/08/20 09:59 37.2 C 105 H 18 129/71 09/08/20 07:57 37.2 C 110 H 18 121/64 Pulse Ox 09/08/20 19:00 92 09/08/20 15:20 90 09/08/20 11:31 93 09/08/20 11:00 90 09/08/20 10:31 91 09/08/20 10:13 09/08/20 09:59 09/08/20 07:57 93 Laboratory Results Laboratory Results - last 24 hr 11/06/20 11/07/20 11/07/20 13:16 00:00 06:52 WBC 5.57 RBC 2.54 L Hgb 8.3 L Hct 25.5 L MCV 100.4 H MCH 32.7 MCHC 32.5 RDW Std Deviation 78.7 H RDW Coeff of Harish 21.9 H Plt Count 62 L Absolute Nucleated RBC 0.17 H Nucleated RBC % (auto) 3.1 Platelet Estimate Decreased L Sodium Potassium Chloride Carbon Dioxide Anion Gap BUN Creatinine Est Cr Clr Drug Dosing Est GFR ( Amer) Est GFR (Non-Af Amer) BUN/Creatinine Ratio Glucose Calcium TSH Urine Legionella Ag Pending Mycoplasma pneumon IgG Mycoplasma pneumon IgM Blood Type B Negative Antibody Screen NEGATIVE Direct Antiglob Test Negative JAN (IgG-AHG) Neg JAN, Polyspecific Neg JAN C3b, C3d 5 Min Neg Crossmatch See Detail 09/08/20 09/08/20 06:52 06:52 WBC RBC Hgb Hct MCV MCH MCHC RDW Std Deviation RDW Coeff of Harish Plt Count Absolute Nucleated RBC Nucleated RBC % (auto) Platelet Estimate Sodium 133 L Potassium 3.1 L D Chloride 100 Carbon Dioxide 25 Anion Gap 8.0 BUN 12 Creatinine 0.60 Est Cr Clr Drug Dosing 90.0 Est GFR ( Amer) 103.3 Est GFR (Non-Af Amer) 89.2 BUN/Creatinine Ratio 20.5 H Glucose 130 H Calcium 7.3 L TSH 2.560 Urine Legionella Ag Mycoplasma pneumon IgG Pending Mycoplasma pneumon IgM Pending Blood Type Antibody Screen Direct Antiglob Test JAN (IgG-AHG) JAN, Polyspecific JAN C3b, C3d 5 Min Crossmatch PG Care Time/CCT Total # of Minutes Spent Total Time Spent with Patient: Total time spent is greater than 50% in coordination of care (as documented) at patient's floor/unit and/or counseling patient: Coding Level of Care Code 78024 Subseq Hosp Care Lvl 3 Diagnoses Acute diastolic CHF (congestive heart failure) I50.[address] R93.89 MDS/MPN (myelodysplastic/myeloproliferative neoplasms) D46.9 Anemia D64.9 Tachycardia R00.0 Edema R60.9 Edema type: unspecified Depression F32.9 Hypertension I10 GERD (gastroesophageal reflux disease) K21.9 Thrombocytopenia D69.6 Hypokalemia E87.6 Hyponatremia E87.1 DVT prophylaxis Z29.9 (1) Edema Edema type: unspecified Qualified Code(s): R60.9 - Edema, unspecified
[2020-09-08] MEDS: ENOXAPARIN INJ 40 MG/0.4 ML SYR SQ SCH (20:56)
[2020-09-08] MEDS: haloperidoL 1 MG TAB PO SCH (20:56)
[2020-09-08] MEDS: NORTRIPTYLINE HCL 25 MG CAP PO SCH (20:57)
[2020-09-08] MEDS ORDERED: COUGH DROP (SUGAR FREE) LOZ 24 LOZ/1 BOX BUCCAL ONE (21:23)
[2020-09-09] MEDS: POTASSIUM CHLORIDE CRTAB 20 MEQ TABCR PO SCH ×3 (08:27→20:18)
[2020-09-09] MEDS: FUROSEMIDE 40 MG in SYRINGE 0 ML IV SCH (08:27)
[2020-09-09] MEDS: MAGNESIUM OXIDE 400 MG TAB PO SCH ×2 (08:28→20:20)
[2020-09-09] MEDS: guaiFENesin 600 MG TABCR PO SCH ×2 (08:28→20:20)
[2020-09-09] MEDS: amLODIPine BESYLATE 5 MG TAB PO SCH (08:28)
[2020-09-09] MEDS: CYANOCOBALAMIN 500 MCG TABLET (VITAMIN B-12) PO SCH (08:29)
[2020-09-09] MEDS: PANTOprazole 40 MG TAB PO SCH (08:29)
[2020-09-09] MEDS: FOLIC ACID 1 MG TAB PO SCH (08:29)
[2020-09-09] MEDS: METOPROLOL TARTRATE 25 MG TAB PO SCH ×2 (08:33→20:19)
[2020-09-09 09:11] LABS: BUN Creatinine Ratio 20.1 (10-20); Calcium 7.8 mg/dl (8.5-10.1); Creatinine Clr Calc Pharmacy 76.2 ml/min; Est GFR (African American) 96.6; Est GFR (Non-African American) 83.3; Magnesium 2.1 mg/dl (1.8-2.4); Potassium 4.3 mmol/L (3.5-5.1)
[2020-09-09 09:25] LABS: Hematocrit (blood only) 29.6 % (37-47); Hemoglobin 9.7 g/dL (12.0-16.0); Mean Corpuscular Hemoglobin 32.8 pg (25-34); Mean Corpuscular Hgb Conc 32.8 g/dL (32-36); Nucleated RBC # (auto) 0.25 K/uL (0-0); Nucleated RBC % (auto) 3.2 %; Platelet Count 64 K/uL (130-400); RDW Coefficient of Variation 21.6 % (11.5-14.5); Red Blood Count 2.96 M/uL (4.2-5.4); White Blood Count 7.93 K/uL (4.8-10.8)
[2020-09-09] MEDS: DOXYCYCLINE HYCLATE 100 MG in DEXTROSE 5% 100 ML IV SCH ×2 (10:17→21:03)
--- NOTE | 2020-09-09 10:35 | Progress Notes ---
DATE: 09/09/2020 HEMATOLOGY PROGRESS NOTE DIAGNOSES: 1. Progressive anemia. 2. Myelodysplasia/myeloproliferative neoplasm. 3. Abnormal chest CT, possible pneumonic process. 4. Acute diastolic congestive heart failure. SUBJECTIVE: Stephany was seen and examined at bedside. Clinically, she seems to be doing a bit better; however, has considerable lower extremity edema. I spoke to the hospitalist managing Stephany who stated her most recent radiographs show no evidence of cephalization or acute heart failure. Definitely concerned with her lack of response to blood products and suspect maybe there is a component of alloimmunization in her case. Her hemoglobin is improved today at 9.7, which is encouraging. Nursing reports no overnight difficulties. Stephany is quite comfortable without a specific complaint. OBJECTIVE: GENERAL: Very pleasant 74-year-old female, in no acute distress. VITAL SIGNS: Temperature 36.7, pulse 112, respiratory rate 20, blood pressure 125/69. SKIN: Without rash or lesion. HEENT: Oral mucosa without erythema or ulceration. HEART: Regular rate and rhythm. LUNGS: Clear to auscultation bilaterally. ABDOMEN: Soft, nontender, nondistended. EXTREMITIES: 2+ peripheral edema bilaterally. NEUROLOGIC: Grossly intact. LABORATORY DATA: WBC count 7930, hemoglobin 9.7, platelet count 64,000. Sodium 132, potassium 4.3, chloride 101, carbon dioxide 24, creatinine 0.71, BUN 14. RADIOGRAPHIC STUDIES: Venous Doppler examination report is somewhat ambiguous. In the findings, it says the deep veins were compressible; however, in the impression, technically difficult exam, but evidence of DVT, which I believe is incorrect. CTA of the chest reveals no evidence of pulmonary embolism; however, diffuse bilateral ground-glass opacities. IMPRESSION: 1. Acute diastolic congestive heart failure. 2. Abnormal chest CT. 3. Myelodysplasia/myeloproliferative neoplasm. 4. Progressive anemia. 5. Lower extremity edema. PLAN: It was my pleasure to visit with the patient this morning at bedside. tSephany had several concerns on admission. General clinical decline. She was falling at home. She had also received outpatient transfusion, which did not result in significant increase in her hemoglobin, thus raising the question of possible alloimmunization. It is very pleased to say her hemoglobin today is encouraging at 9.7. This lady has a very unusual combination of myelodysplasia and myeloproliferative disease. She continues to receive 5-azacytidine and was previously on Hydrea for platelet reduction. All in all, her peripheral counts have responded nicely with the exception of refractory anemia. I am perplexed in regards to the ongoing lower extremity edema. Hospitalist informs me he is not really seeing a lot of evidence for CHF radiographically. However, CTA of the chest does reveal ground-glass infiltrates. Clinically, Stephany seems to be doing much better. Would continue to monitor her counts on a daily basis. Would hold off on transfusion unless her hemoglobin goes below 7.5 grams per deciliter. We will continue to see her periodically during her stay. Again, appreciate the assistance in caring for this very pleasant lady with complex hematologic issues.
[2020-09-09] MEDS: BENZONATATE 100 MG CAPSULE PO SCH ×2 (16:57→20:21)
[2020-09-09] MEDS ORDERED: FUROSEMIDE 40 MG in SYRINGE 0 ML IV ONE (17:00)
[2020-09-09] MEDS ORDERED: bisacodyL 5 MG TABEC PO ONE (17:50)
[2020-09-09] MEDS: POLYETHYLENE (MIRALAX) 17 GM PACK PO SCH (18:19)
--- NOTE | 2020-09-09 18:40 | XRay Report ---
XR chest 2V PA/lateral CLINICAL HISTORY: persistent cough, recent CHF COMPARISON STUDY: Chest radiograph and chest CT September 06, 2020. FINDINGS: No pneumothorax or pleural effusion is noted. There is mild cardiomegaly. Interstitial thic kening persists. There has been interval development of moderate right mid and lower lung airspace op acity. There is no airspace opacity within the left lung. IMPRESSION: Interval development of moderate right mid and lower lung airspace opacity. This favors pneumonia however asymmetric pulmonary edema could appear similar. ACT 112: Negative or not required by law. Electronically signed by: Renzo Heard M.D. 09/09/2020 6:39 PM
[2020-09-09] MEDS: haloperidoL 1 MG TAB PO SCH (20:18)
[2020-09-09] MEDS: ENOXAPARIN INJ 40 MG/0.4 ML SYR SQ SCH (20:19)
[2020-09-09] MEDS: NORTRIPTYLINE HCL 25 MG CAP PO SCH (20:20)
[2020-09-09] MEDS: cefTRIAXone SODIUM 2,000 MG in DEXTROSE 5% 50 ML IV SCH (21:39)
--- NOTE | 2020-09-09 22:30 | Hospitalist Progress Note ---
Date of Service September 09, 2020 Assessment & Plan (1) Pneumonia: admission CT chest with diffuse b/l infiltrates. COVID-19 neg. RSV and rapid flu negative. has been on doxycycline IV. some concern for acute diastolic CHF. despite aggressive diuresis she continues with cough and low-normal O2 sats. repeat cxr today with RML and RLL pneumonia. add rocephin to the doxy. mycoplasma and legionella tests pending. RECHECK COVID-19 PCR. cont supportive care. stop diuresis. (2) Acute diastolic CHF (congestive heart failure): has received numerous doses of IV lasix since admission. her LE edema has improved considerably however her respiratory status is similar. Also, with diuresis, her Na level continues to drop. stop any additional IV lasix for now. daily BMP. daily standing scale weights. echo findings noted. start metoprolol 25mg BID. (3) Abnormal chest CT: Diffuse b/l infiltrates. CHF vs atypical infection vs combination of those 2. COVID-19, flu, RSV negative. Has been sick with "Bronchitis" x 5 weeks. Mycoplasma titers and legionella urine ag pending. Continue doxycycline for atypical coverage. see above in "pneumonia." repeat COVID-19 test ordered today. (4) MDS/MPN (myelodysplastic/myeloproliferative neoplasms): Followed by [facility] and [facility] locally. Appreciate heme/onc consult and recs. s/p 2 units PRBCs this admission with robust reponse - Hb now 9.5 today. Patient does not feel any better post-transfusion unfortunately. Hemolytic w/u negative. Daily CBC. Cont folate supplementation. (5) Anemia: s/p 1 unit PRBCs 09/07 and 1 unit on 09/08. CBC in am. Folate 1mg daily. (6) Tachycardia: TSH wnl. Tachycardia may be 2nd to SIRS vs anemia vs decompensated CHF vs combination of factors. Cont tele status. Echo findings noted. added metoprolol 25mg BID. (7) Edema: Dopplers neg for DVT b/l. Edema 2nd to acute diastolic CHF. Edema is improved although not resolved. (8) Depression: Cont home meds. (9) Hypertension: Cont home meds. (10) GERD (gastroesophageal reflux disease): protonix daily (11) Thrombocytopenia: Chronic issue. Previously actually had thrombocytosis treated with hydroxyurea. Appreciate heme/onc consult. Daily CBC. Use lovenox for DVT proph cautiously. HOLD aspirin. (12) Hypokalemia: replaced and resolved stop K supplementation (13) Hyponatremia: 2nd diuresis. getting worse. stop IV lasix. BMP in am. (14) DVT prophylaxis: lovenox daily cautiously (in light of low platelets) brother updated by phone 09/07/20 and 09/09/20 Admission and Anticipated Discharge Date Admission Date: September 06, 2020 Subjective patient continues with cough, nonproductive. continues with dyspnea on exertion with walking to bathroom. appetite is fair at best. leg edema improving. tele overnight - sinus tach. despite PRBCs she doesn't feel any stronger -- still quite fatigued. denies any pain any location. Review of Systems Constitutional: + fatigue and + anorexia; no fever and no chills Respiratory: + dyspnea on exertion; no wheezing Cardiovascular: no chest pain and no dyspnea at rest Gastrointestinal: no abdominal pain, no nausea and no vomiting Physical Exam Constitutional: well developed and well nourished; no acute distress and no altered mental status coughing ENMT: external ear and nose normal, oropharynx normal Respiratory: no respiratory distress Auscultation: + diminished lung sounds (minimal - bases); no crackles and no wheezes Cardiovascular: Rate/Rhythm: regular rhythm and + tachycardic Heart Sounds: normal S1, normal S2 and + murmur (1/6 systolic LSB) Vessels: posterior tibial pulses present and dorsalis pedis pulses present; no JVD Extremities: + edema (Improved; 2+ B/l) Gastrointestinal (Abdomen): normal bowel sounds, soft, nontender, no hepatosplenomegaly Psychiatric: A+Ox3, euthymic affect Results & Data Results & Data ([facility]) Vital Signs (Past 12 Hours) Vital Signs Temp Pulse Pulse Resp BP BP Pulse Ox 09/09/20 19:00 36.8 C 76 20 118/55 L 91 09/09/20 15:26 36.7 C 99 H 18 121/70 90 09/09/20 15:08 100 H 09/09/20 13:17 93 09/09/20 11:10 36.7 C 91 H 18 115/64 93 Laboratory Results Laboratory Results - last 24 hr 09/09/20 09/09/20 08:16 08:16 WBC 7.93 RBC 2.96 L Hgb 9.7 L Hct 29.6 L MCV 100.0 MCH 32.8 MCHC 32.8 RDW Std Deviation 77.0 H RDW Coeff of Harish 21.6 H Plt Count 64 L Absolute Nucleated RBC 0.25 H Nucleated RBC % (auto) 3.2 Sodium 132 L Potassium 4.3 D Chloride 101 Carbon Dioxide 24 Anion Gap 8.0 BUN 14 Creatinine 0.71 Est Cr Clr Drug Dosing 76.2 Est GFR ( Amer) 96.6 Est GFR (Non-Af Amer) 83.3 BUN/Creatinine Ratio 20.1 H Glucose 160 H Calcium 7.8 L Magnesium 2.1 cxr - worsening right sided infiltrates PG Care Time/CCT Total # of Minutes Spent Total Time Spent with Patient: Total time spent is greater than 50% in coordination of care (as documented) at patient's floor/unit and/or counseling patient: Coding Level of Care Code 57098 Subseq Hosp Care Lvl 3 Diagnoses Pneumonia J18.9 Acute diastolic CHF (congestive heart failure) I50.[address] R93.89 MDS/MPN (myelodysplastic/myeloproliferative neoplasms) D46.9 Anemia D64.9 Tachycardia R00.0 Edema R60.9 Edema type: unspecified Depression F32.9 Hypertension I10 GERD (gastroesophageal reflux disease) K21.9 Thrombocytopenia D69.6 Hypokalemia E87.6 Hyponatremia E87.1 DVT prophylaxis Z29.9 (1) Edema Edema type: unspecified Qualified Code(s): R60.9 - Edema, unspecified
[2020-09-10 06:33] LABS: Mean Corpuscular Hgb Conc 31.7 g/dL (32-36); Nucleated RBC # (auto) 0.18 K/uL (0-0); Nucleated RBC % (auto) 3.3 %
[2020-09-10 06:42] LABS: Hematocrit (blood only) 27.8 % (37-47); Hemoglobin 8.8 g/dL (12.0-16.0); Mean Corpuscular Hemoglobin 32.6 pg (25-34); RDW Coefficient of Variation 21.2 % (11.5-14.5); RDW Standard Deviation 78.1 fL (36.4-46.3); White Blood Count 5.29 K/uL (4.8-10.8)
[2020-09-10 06:58] LABS: Estimated Average Glucose 137 mg/dl; Hemoglobin A1C 6.4 % (4.5-5.6)
[2020-09-10 07:01] LABS: BUN Creatinine Ratio 30.8 (10-20); Calcium 7.3 mg/dl (8.5-10.1); Creatinine Clr Calc Pharmacy 92.3 ml/min; Est GFR (African American) 103.9; Est GFR (Non-African American) 89.7; Potassium 4.4 mmol/L (3.5-5.1)
[2020-09-10 07:35] LABS: Platelet Count 54 K/uL (130-400)
[2020-09-10 07:36] LABS: ALC (manual) 1.05 K/uL (1.2-3.4); ANC (manual) 1.96 K/uL (1.4-6.5); Blast Cells % (manual) 18.9 %; Giant Platelets 1+; Hypogranular Neutrophils 1+; Lymphocytes # (manual) 1.05 K/uL (1.2-3.4); Lymphocytes % (manual) 19.8 %; Metamyelocytes # (manual) 0.05 K/uL (0-0); Metamyelocytes % (manual) 0.9 %; Monocytes # (manual) 1.19 K/uL (0.11-0.59); Monocytes % (manual) 22.5 %; Neutrophils # (manual) 1.96 K/uL (1.4-6.5); Platelet Estimate Decreased (Normal); Promyelocytes # (manual) 0.05 K/uL (0-0); Promyelocytes % (manual) 0.9 %
[2020-09-10] MEDS: PANTOprazole 40 MG TAB PO SCH (08:38)
[2020-09-10] MEDS: CYANOCOBALAMIN 500 MCG TABLET (VITAMIN B-12) PO SCH (08:38)
[2020-09-10] MEDS: guaiFENesin 600 MG TABCR PO SCH ×2 (08:39→20:45)
[2020-09-10] MEDS: BENZONATATE 100 MG CAPSULE PO SCH ×3 (08:39→20:46)
[2020-09-10] MEDS: amLODIPine BESYLATE 5 MG TAB PO SCH (08:39)
[2020-09-10] MEDS: FOLIC ACID 1 MG TAB PO SCH (08:39)
[2020-09-10] MEDS: MAGNESIUM OXIDE 400 MG TAB PO SCH ×2 (08:39→20:45)
[2020-09-10] MEDS: POLYETHYLENE (MIRALAX) 17 GM PACK PO SCH (08:40)
[2020-09-10] MEDS: METOPROLOL TARTRATE 25 MG TAB PO SCH ×2 (08:40→20:44)
[2020-09-10] MEDS: DOXYCYCLINE HYCLATE 100 MG in DEXTROSE 5% 100 ML IV SCH ×2 (10:28→21:32)
--- NOTE | 2020-09-10 14:05 | Hospitalist Progress Note ---
Date of Service September 10, 2020 Assessment & Plan (1) Pneumonia: admission CT chest with diffuse b/l infiltrates. COVID-19 neg. RSV and rapid flu negative. has been on doxycycline IV. CXR with RML and RLL pneumonia. Continue rocephin to the doxy. mycoplasma and legionella tests pending. cont supportive care. stop diuresis. (2) Acute diastolic CHF (congestive heart failure): has received numerous doses of IV lasix since admission. her LE edema has improved considerably however her respiratory status is similar. Also, with diuresis, her Na level continues to drop. stop any additional IV lasix for now. daily BMP. daily standing scale weights. echo findings noted. started metoprolol 25mg BID. (3) Abnormal chest CT: Diffuse b/l infiltrates. Due to CHF and pneumonia COVID-19, flu, RSV negative. Mycoplasma titers and legionella urine ag pending. Continue doxycycline for atypical coverage. see above in "pneumonia." (4) MDS/MPN (myelodysplastic/myeloproliferative neoplasms): Followed by [facility] and [facility] locally. Appreciate heme/onc consult and recs. s/p 2 units PRBCs this admission with robust reponse - Hb 8.8 today. Hemolytic w/u negative. Daily CBC. Cont folate supplementation. (5) Anemia: s/p 1 unit PRBCs 09/07 and 1 unit on 09/08. Serial CBC . Folate 1mg daily. (6) Tachycardia: TSH wnl. Tachycardia due to SIRS, anemia, decompensated CHF Cont tele status. Echo findings noted. added metoprolol 25mg BID. (7) Edema: Dopplers neg for DVT b/l. Edema 2nd to acute diastolic CHF. Edema is improved (8) Depression: Cont home meds. (9) Hypertension: Cont home meds. (10) GERD (gastroesophageal reflux disease): protonix daily (11) Thrombocytopenia: Chronic issue. Previously actually had thrombocytosis treated with hydroxyurea. Appreciate heme/onc consult. Daily CBC. Use lovenox for DVT proph cautiously. HOLD aspirin. (12) Hypokalemia: replaced and resolved stop K supplementation (13) Hyponatremia: 2nd diuresis. getting worse. stopped IV lasix. Serial BMP (14) DVT prophylaxis: lovenox daily cautiously (in light of low platelets) brother updated by phone 09/07/20 and 09/09/20 Admission and Anticipated Discharge Date Admission Date: September 06, 2020 Subjective No new complaints. Sodium 133 and potassium 4.4 today. She remains on doxycycl ine and Rocephin. 2 units packed red blood cells were transfused this admission and hemoglobin is 8.8. Platelet count is chronically low. Review of Systems Review of Systems: Constitutional-no fever or chills ENT-no blurred vision, no double vision, no epistaxis, no sore throat Respiratory-no cough, no wheezing Cardiac-no palpitations, no chest pain, no syncope GI-no nausea, vomiting, diarrhea, melena, hematochezia -no urinary retention, no urinary incontinence, no dysuria, no hematuria Musculoskeletal-no joint pain, no muscle tenderness Skin-no bruising, no rashes, no pruritus Neuro-no isolated weakness, no paresthesia, no weakness Psych-no depression, no anxiety Physical Exam Physical Exam: General-alert and oriented x3, no fevers, no chills HEENT-head atraumatic and normocephalic, TMs intact bilaterally, pupils equal and reactive to light, extraocular muscles intact Neck-no lymphadenopathy or thyromegaly, trachea midline Chest-bilateral adventitious sounds. No dullness to percussion. No wheezing. Cardiac-regular rate and rhythm, normal S1 and S2, no murmurs Abdomen-normal bowel sounds, nontender, no hepatosplenomegaly Extremities-no cyanosis, clubbing, or edema Neuro-cranial nerves II through XII intact, motor and sensory function within normal limits, strength symmetrical 5/5, no focal deficits Psych-normal affect, normal mood Results & Data Results & Data ([facility]) Vital Signs (Past 12 Hours) Vital Signs Temp Pulse Pulse Resp BP BP Pulse Ox 09/10/20 11:08 36.6 C 95 H 18 130/64 94 09/10/20 07:40 36.4 C L 108 H 16 119/63 91 09/10/20 07:20 106 H 09/10/20 04:00 36.5 C 106 H 22 113/63 94 Laboratory Results 09/10/20 06:08 09/10/20 06:08 PG Care Time/CCT Total # of Minutes Spent Total Time Spent with Patient: Total time spent is greater than 50% in coordination of care (as documented) at patient's floor/unit and/or counseling patient: Coding Level of Care Code 80572 Subseq Hosp Care Lvl 3 Diagnoses Pneumonia J18.9 Acute diastolic CHF (congestive heart failure) I50.[address] R93.89 MDS/MPN (myelodysplastic/myeloproliferative neoplasms) D46.9 Anemia D64.9 Tachycardia R00.0 Edema R60.9 Edema type: unspecified Depression F32.9 Hypertension I10 GERD (gastroesophageal reflux disease) K21.9 Thrombocytopenia D69.6 Hypokalemia E87.6 Hyponatremia E87.1 DVT prophylaxis Z29.9 (1) Edema Edema type: unspecified Qualified Code(s): R60.9 - Edema, unspecified
[2020-09-10] MEDS: cefTRIAXone SODIUM 2,000 MG in DEXTROSE 5% 50 ML IV SCH (20:42)
[2020-09-10] MEDS: NORTRIPTYLINE HCL 25 MG CAP PO SCH (20:45)
[2020-09-10] MEDS: haloperidoL 1 MG TAB PO SCH (20:45)
[2020-09-10] MEDS: ENOXAPARIN INJ 40 MG/0.4 ML SYR SQ SCH (20:46)
[2020-09-11 07:49] LABS: Nucleated RBC # (auto) 0.17 K/uL (0-0); Nucleated RBC % (auto) 2.8 %
[2020-09-11] MEDS: BENZONATATE 100 MG CAPSULE PO SCH ×3 (07:49→20:17)
[2020-09-11] MEDS: guaiFENesin 600 MG TABCR PO SCH ×2 (07:49→20:19)
[2020-09-11] MEDS: amLODIPine BESYLATE 5 MG TAB PO SCH (07:49)
[2020-09-11] MEDS: MAGNESIUM OXIDE 400 MG TAB PO SCH ×2 (07:49→20:19)
[2020-09-11] MEDS: CYANOCOBALAMIN 500 MCG TABLET (VITAMIN B-12) PO SCH (07:49)
[2020-09-11] MEDS: FOLIC ACID 1 MG TAB PO SCH (07:50)
[2020-09-11] MEDS: PANTOprazole 40 MG TAB PO SCH (07:50)
[2020-09-11] MEDS: METOPROLOL TARTRATE 25 MG TAB PO SCH (07:50)
[2020-09-11] MEDS: POLYETHYLENE (MIRALAX) 17 GM PACK PO SCH (07:50)
[2020-09-11 08:01] LABS: Hematocrit (blood only) 26.6 % (37-47); Hemoglobin 8.5 g/dL (12.0-16.0); Mean Corpuscular Hemoglobin 32.4 pg (25-34); Mean Corpuscular Volume 101.5 fL (80-100); RDW Coefficient of Variation 20.5 % (11.5-14.5); RDW Standard Deviation 75.8 fL (36.4-46.3); Red Blood Count 2.62 M/uL (4.2-5.4); White Blood Count 5.97 K/uL (4.8-10.8)
[2020-09-11 08:17] LABS: BUN Creatinine Ratio 22.1 (10-20); Calcium 7.6 mg/dl (8.5-10.1); Creatinine Clr Calc Pharmacy 93.4 ml/min; Est GFR (African American) 104.5; Est GFR (Non-African American) 90.2; Potassium 4.1 mmol/L (3.5-5.1)
[2020-09-11 08:29] LABS: Platelet Count 55 K/uL (130-400)
[2020-09-11 08:43] LABS: ALC (manual) 1.15 K/uL (1.2-3.4); ANC (manual) 1.73 K/uL (1.4-6.5); Anisocytosis Present; Blast # (manual) 1.41 K/uL (0-0); Blast Cells % (manual) 23.7 %; Giant Platelets 2+; Hypogranular Neutrophils 1+; Lymphocytes # (manual) 1.15 K/uL (1.2-3.4); Lymphocytes % (manual) 19.3 %; Metamyelocytes # (manual) 0.05 K/uL (0-0); Metamyelocytes % (manual) 0.9 %; Monocytes # (manual) 1.62 K/uL (0.11-0.59); Monocytes % (manual) 27.2 %; Neutrophils # (manual) 1.73 K/uL (1.4-6.5); Neutrophils % (manual) 28.9 %
--- NOTE | 2020-09-11 08:50 | Progress Notes ---
DATE: 09/11/2020 DIAGNOSES: 1. Progressive anemia. 2. Myelodysplasia/myeloproliferative disorder. 3. Abnormal chest CT, possible pneumonic process. 4. Acute diastolic congestive failure. SUBJECTIVE: The patient is a pleasant 74-year-old female well known to [facility], currently under my care with myeloproliferative disorder superimposed myelodysplasia. 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 She seems to be holding her hemoglobin reasonably well, yesterday it was 8.8 grams per deciliter. The patient feels reasonably well; however, was diagnosed with pneumonia and recently changed antibiotics from Rocephin to doxycycline. She has been effectively diuresed with a dramatic improvement in her lower extremity edema. She received 2 units of packed RBCs earlier in the admission and again seems to be holding her own. Nursing reports no overnight difficulties. OBJECTIVE: GENERAL: A very pleasant 74-year-old female, in no acute distress. VITAL SIGNS: Temperature 36.7, pulse 111, respiratory rate 22, blood pressure 151/71. SKIN: Without rash or lesion. HEENT: No buccal lesions or ulcerations. HEART: Regular rate and rhythm. LUNGS: Clear to auscultation. ABDOMEN: Soft, nontender, nondistended. EXTREMITIES: Trace peripheral edema. Dramatic improvement noted. NEUROLOGIC: She is grossly intact. LABORATORY DATA: These were from yesterday, WBC 5290, hemoglobin 8.8, platelet count 54,000. Sodium 133, potassium 4.4, chloride 103, carbon dioxide 25.0, creatinine 0.59, BUN 18. IMPRESSION: 1. Pneumonia. 2. Acute diastolic congestive heart failure. 3. Myelodysplastic syndrome/myeloproliferative neoplasm. 4. Lower extremity edema. PLAN: From a hematologic standpoint, the patient seems to be holding her own. Medical service is working on her heart failure successfully, I might add. Her lower extremities are much better. The patient reports no symptomatology, offers no complaints and nursing offers no overnight issues pertaining to the patient. Once she is medically stable and discharged plan to reconvene with her to resume her supportive hematologic care including chemotherapy (5 days cytarabine). We will continue to follow her periodically during hospitalization.
[2020-09-11] MEDS: DOXYCYCLINE HYCLATE 100 MG in DEXTROSE 5% 100 ML IV SCH ×2 (09:49→21:53)
[2020-09-11] MEDS ORDERED: METOPROLOL TARTRATE 25 MG TAB PO ONE (10:00)
--- NOTE | 2020-09-11 12:42 | Hospitalist Progress Note ---
Date of Service September 11, 2020 Assessment & Plan (1) Pneumonia: admission CT chest with diffuse b/l infiltrates. COVID-19 neg. RSV and rapid flu negative. CXR with RML and RLL pneumonia. Continue rocephin and doxy. mycoplasma studies pending. Legionella antigen negative. cont supportive care. (2) Acute diastolic CHF (congestive heart failure): Treated with intravenous Lasix. Appears to have resolved. Cardiac echo findings noted. Started metoprolol this admission (3) Abnormal chest CT: Diffuse b/l infiltrates. Due to CHF and pneumonia COVID-19, flu, RSV negative. Mycoplasma titers pending. Legionella antigen negative. (4) MDS/MPN (myelodysplastic/myeloproliferative neoplasms): Followed by [facility] and [facility] locally. Appreciate heme/onc consult and recs. s/p 2 units PRBCs this admission with robust reponse Hemolytic w/u negative. Daily CBC. Cont folate supplementation. (5) Anemia: s/p 1 unit PRBCs 09/07 and 1 unit on 09/08. Serial CBC . Folate 1mg daily. (6) Tachycardia: TSH wnl. Tachycardia due to SIRS, anemia, decompensated CHF Cont tele status. Echo findings noted. added metoprolol this admission. Dosage uptitrated today, September 11. (7) Edema: Dopplers neg for DVT b/l. Edema 2nd to acute diastolic CHF. Edema is improved (8) Depression: Cont home meds. (9) Hypertension: Cont home meds. (10) GERD (gastroesophageal reflux disease): protonix daily (11) Thrombocytopenia: Chronic issue. Previously actually had thrombocytosis treated with hydroxyurea. Appreciate heme/onc consult. Daily CBC. Use lovenox for DVT proph cautiously. HOLD aspirin. (12) Hypokalemia: replaced and resolved stopped K supplementation (13) Hyponatremia: 2nd diuresis. stopped IV lasix. Serial BMP (14) DVT prophylaxis: lovenox daily cautiously (in light of low platelets) brother updated by phone 09/07/20 and 09/09/20 Admission and Anticipated Discharge Date Admission Date: September 06, 2020 Subjective The patient is quite weak and she is not participating with therapies. I encouraged her to participate. Legionella antigen negative. Mycoplasma studies still pending. Chest x-ray done September 09 reveals multilobar right-sided pneumonia. Metoprolol dosage uptitrated today for better heart rate control. She remains on doxycycline and Rocephin. Oncology entry noted. Review of Systems Review of Systems: Constitutional-no fever or chills ENT-no blurred vision, no double vision, no epistaxis, no sore throat Respiratory-nonproductive cough. No wheezing, no shortness of breath Cardiac-no palpitations, no chest pain, no syncope GI-no nausea, vomiting, diarrhea, melena, hematochezia -no urinary retention, no urinary incontinence, no dysuria, no hematuria Musculoskeletal-no joint pain, no muscle tenderness. Generalized weakness Skin-no bruising, no rashes, no pruritus Neuro-no isolated weakness, no paresthesia, no weakness Psych-no depression, no anxiety Physical Exam Physical Exam: General-alert and oriented x3, no fevers, no chills HEENT-head atraumatic and normocephalic, TMs intact bilaterally, pupils equal and reactive to light, extraocular muscles intact Neck-no lymphadenopathy or thyromegaly, trachea midline Chest-adventitious respiratory sounds bilaterally. No rales wheezing or rhonchi Cardiac-regular rhythm, mild tachycardia, normal S1 and S2, no murmurs Abdomen-normal bowel sounds, nontender, no hepatosplenomegaly Extremities-no cyanosis, clubbing, or edema Neuro-cranial nerves II through XII intact, no focal deficits Psych-flat affect Results & Data Results & Data ([facility]) Vital Signs (Past 12 Hours) Vital Signs Temp Pulse Pulse Resp BP Pulse Ox 09/11/20 07:50 37.0 C 105 H 18 134/62 95 09/11/20 04:00 36.7 C 111 H 22 151/71 H 92 09/11/20 01:27 99 H Laboratory Results 09/11/20 06:58 09/11/20 06:58 PG Care Time/CCT Total # of Minutes Spent Total Time Spent with Patient: Total time spent is greater than 50% in coordination of care (as documented) at patient's floor/unit and/or counseling patient: Coding Level of Care Code 03014 Subseq Hosp Care Lvl 3 Diagnoses Pneumonia J18.9 Acute diastolic CHF (congestive heart failure) I50.[address] R93.89 MDS/MPN (myelodysplastic/myeloproliferative neoplasms) D46.9 Anemia D64.9 Tachycardia R00.0 Edema R60.9 Edema type: unspecified Depression F32.9 Hypertension I10 GERD (gastroesophageal reflux disease) K21.9 Thrombocytopenia D69.6 Hypokalemia E87.6 Hyponatremia E87.1 DVT prophylaxis Z29.9 (1) Edema Edema type: unspecified Qualified Code(s): R60.9 - Edema, unspecified
[2020-09-11] MEDS: ENOXAPARIN INJ 40 MG/0.4 ML SYR SQ SCH (20:17)
[2020-09-11] MEDS: METOPROLOL TARTRATE 50 MG TAB PO SCH (20:18)
[2020-09-11] MEDS: haloperidoL 1 MG TAB PO SCH (20:18)
[2020-09-11] MEDS: NORTRIPTYLINE HCL 25 MG CAP PO SCH (20:20)
[2020-09-11] MEDS: cefTRIAXone SODIUM 2,000 MG in DEXTROSE 5% 50 ML IV SCH (20:21)
[2020-09-12 06:44] LABS: Hematocrit (blood only) 25.6 % (37-47); Hemoglobin 8.5 g/dL (12.0-16.0); Mean Corpuscular Hemoglobin 33.1 pg (25-34); Mean Corpuscular Hgb Conc 33.2 g/dL (32-36); Mean Corpuscular Volume 99.6 fL (80-100); Nucleated RBC # (auto) 0.23 K/uL (0-0); Nucleated RBC % (auto) 3.5 %; RDW Coefficient of Variation 20.5 % (11.5-14.5); RDW Standard Deviation 75.8 fL (36.4-46.3); Red Blood Count 2.57 M/uL (4.2-5.4); White Blood Count 6.36 K/uL (4.8-10.8)
[2020-09-12 06:49] LABS: BUN Creatinine Ratio 24.7 (10-20); Calcium 7.7 mg/dl (8.5-10.1); Creatinine Clr Calc Pharmacy 94.6 ml/min; Est GFR (African American) 105.1; Est GFR (Non-African American) 90.7; Potassium 3.9 mmol/L (3.5-5.1)
[2020-09-12 07:16] LABS: Platelet Count 39 K/uL (130-400)
[2020-09-12 07:32] LABS: Anisocytosis Present; Giant Platelets 1+; Hypogranular Neutrophils 2+; Microcytosis Present; Platelet Estimate Decreased (Normal)
[2020-09-12 07:33] LABS: ALC (manual) 1.29 K/uL (1.2-3.4); ANC (manual) 1.88 K/uL (1.4-6.5); Basophils # (manual) 0.11 K/uL (0-0.2); Basophils % (manual) 1.7 %; Blast # (manual) 0.86 K/uL (0-0); Blast Cells % (manual) 13.6 %; Eosinophils # (manual) 0.02 K/uL (0-0.5); Eosinophils % (manual) 0.3 %; Lymphocytes # (manual) 1.29 K/uL (1.2-3.4); Lymphocytes % (manual) 20.3 %; Monocytes # (manual) 2.07 K/uL (0.11-0.59); Monocytes % (manual) 32.6 %; Myelocytes # (manual) 0.02 K/uL (0-0); Myelocytes % (manual) 0.3 %; Neutrophils # (manual) 1.88 K/uL (1.4-6.5); Neutrophils % (manual) 29.5 %; Other Cell Type % 1.7 %; Other Cells # (manual) 0.11 K/uL (0-0)
[2020-09-12] MEDS: FOLIC ACID 1 MG TAB PO SCH (07:41)
[2020-09-12] MEDS: BENZONATATE 100 MG CAPSULE PO SCH ×3 (07:42→20:03)
[2020-09-12] MEDS: METOPROLOL TARTRATE 50 MG TAB PO SCH ×2 (07:42→20:06)
[2020-09-12] MEDS: POLYETHYLENE (MIRALAX) 17 GM PACK PO SCH (07:42)
[2020-09-12] MEDS: CYANOCOBALAMIN 500 MCG TABLET (VITAMIN B-12) PO SCH (07:42)
[2020-09-12] MEDS: guaiFENesin 600 MG TABCR PO SCH ×2 (07:42→20:05)
[2020-09-12] MEDS: PANTOprazole 40 MG TAB PO SCH (07:42)
[2020-09-12] MEDS: amLODIPine BESYLATE 5 MG TAB PO SCH (07:42)
[2020-09-12] MEDS: MAGNESIUM OXIDE 400 MG TAB PO SCH ×2 (07:42→20:05)
--- NOTE | 2020-09-12 08:40 | Progress Notes ---
DATE: 09/12/2020 DIAGNOSES: 1. Progressive anemia. 2. Myelodysplasia/myeloproliferative disorder. 3. Abnormal chest CT, possible pneumonic process. 4. Acute diastolic congestive failure. SUBJECTIVE: The patient was seen and examined at bedside. As you recall, she is currently under my care receiving 5-azacitidine for myeloproliferative disorder superimposed myelodysplasia. The patient was admitted in heart failure. Aggressive diuresis has corrected her fluid balance, her lower extremity edema is much improved. She continues to hold her own from a hemoglobin standpoint. Initially, I was fearful that she may be developing alloimmunization. Her hemoglobin today is 8.5. She admits to tolerating her diet. She is moving her bowels and apparently is ambulating with the aid of a walker without feeling lightheaded or dizzy. We will discuss potential discharge with the hospitalist. OBJECTIVE: GENERAL: A very pleasant 74-year-old female in no acute distress. VITAL SIGNS: Temperature 37.1, pulse 109, respiratory rate 18, blood pressure 136/67. SKIN: Without rash or lesion. HEENT: Oral mucosa without erythema or ulceration. HEART: Regular rate and rhythm. LUNGS: Clear to auscultation bilaterally. ABDOMEN: Soft, nontender, nondistended. EXTREMITIES: Again, vastly improved. Trace peripheral edema remains. NEUROLOGIC: Grossly intact. LABORATORY DATA: WBC count 6360, hemoglobin 8.5, platelet count 39,000. Sodium 131, potassium 3.9, chloride 101, carbon dioxide 23, creatinine 0.57, BUN 14. RADIOGRAPHIC DATA: Her last chest x-ray was performed on 09/09/2020 revealing infiltrates in the right mid and lower lung airspace, favors pneumonia; however, asymmetric pulmonary edema could appear similar. IMPRESSION: 1. Possible pneumonia. 2. Acute diastolic congestive heart failure. 3. Myelodysplastic syndrome/myeloproliferative neoplasm. 4. Lower extremity edema. PLAN: From a hematologic standpoint, the patient has remained stable over the past 48 hours. The hospitalist service has done an excellent job managing her heart failure and I believe she continues on antibiotics for suspected pneumonia. The patient from a hemodynamic standpoint seems to be doing well. We will discuss possible discharge as patient will be due for her next round of chemotherapy in the next week or two. I have nothing further to add at this point and will continue to follow her periodically during her hospital stay.
[2020-09-12] MEDS: DOXYCYCLINE HYCLATE 100 MG in DEXTROSE 5% 100 ML IV SCH ×2 (10:28→21:21)
--- NOTE | 2020-09-12 14:20 | XRay Report ---
XR chest 1V portable CLINICAL HISTORY: cough COMPARISON STUDY: 09/21/2020 FINDINGS: The cardiac and mediastinal contours remain stable. There are persistent right-sided airspa ce opacities. There is been interval development of left pulmonary airspace opacities. Diagnostic con siderations include pneumonia versus pulmonary edema. Clinical and radiographic follow-up is recommen ded.[ IMPRESSION: 1. Persistent right lung airspace opacities and developing left lung airspace opacities. Diagnostic c onsiderations include pulmonary edema versus pneumonia. Clinical and radiographic follow-up is recomm ended. ACT 112: Negative or not required by law. Electronically signed by: Meir Deluca M.D. 09/12/2020 2:19 PM
--- NOTE | 2020-09-12 17:06 | Hospitalist Progress Note ---
Date of Service September 12, 2020 Assessment & Plan (1) Acute diastolic CHF (congestive heart failure): Treated with intravenous Lasix - giving another dose of lasix tonight with worsening CXR findings and lower extremity edema Cardiac echo with normal systolic function EF 60-65% Started metoprolol this admission (2) Pneumonia: admission CT chest with diffuse b/l infiltrates. COVID-19 neg. RSV and rapid flu negative. CXR with RML and RLL pneumonia. Continue rocephin and doxy. mycoplasma studies still pending. Legionella antigen negative. (3) Hyponatremia: 2nd diuresis. stopped IV lasix. Serial BMP (4) MDS/MPN (myelodysplastic/myeloproliferative neoplasms): Followed by [facility] locally. Appreciate heme/onc consult and recs. s/p 2 units PRBCs this admission with robust reponse Hemolytic w/u negative. Daily CBC. Cont folate supplementation. (5) Anemia: s/p 1 unit PRBCs 09/07 and 1 unit on 09/08. Serial CBC . Folate 1mg daily. (6) Tachycardia: TSH wnl. Tachycardia due to SIRS, anemia, decompensated CHF Cont tele status. Echo findings noted. added metoprolol this admission. Dosage uptitrated today, September 11. (7) Edema: Dopplers neg for DVT b/l. Edema 2nd to acute diastolic CHF. Edema is improved (8) Depression: Cont home meds. (9) Hypertension: Cont home meds. (10) GERD (gastroesophageal reflux disease): protonix daily (11) Thrombocytopenia: Chronic issue. Previously actually had thrombocytosis treated with hydroxyurea. Appreciate heme/onc consult. Daily CBC. Use lovenox for DVT proph cautiously. HOLD aspirin. (12) Hypokalemia: replaced and resolved stopped K supplementation (13) DVT prophylaxis: lovenox daily cautiously (in light of low platelets) brother updated by phone 09/07/20 and 09/09/20 Admission and Anticipated Discharge Date Admission Date: September 06, 2020 Subjective Patient crying during my visit -- states that she can't go home because her brother told her, "no one to take care of you." She has no children or family near by. Patient agrees that if PT recommends rehab, she would go for a short while. She has a walker that she uses for ambulation. She still has a cough. Her lower extremities are still swollen. Review of Systems Constitutional: no fever, no chills, no fatigue, no weakness, no anorexia, no weight loss and no weight gain Ear, Nose, Mouth, Throat: no nasal congestion, no sore throat and no dysphagia Respiratory: + cough and + dyspnea Cardiovascular: + edema; no chest pain, no dyspnea on exertion, no orthopnea and no palpitations Gastrointestinal: no abdominal pain, no nausea, no vomiting, no hematemesis, no dysphagia, no constipation, no diarrhea/loose stools, no blood in stools and no melena Genitourinary: no dysuria, no urinary frequency, no hematuria and no flank pain Musculoskeletal: no back pain, no joint pain, no myalgia and no muscle weakness Integumentary: no rash, no lesions, no skin ulcer, no erythema, no dry skin and no pruritus Neurologic: no falls, no localized weakness, no generalized weakness, no numbness, no paresthesia, no tremor(s) and no headache(s) Psychiatric: no depression, no suicidal ideation, no homicidal ideation and no anxiety Endocrine: no cold intolerance and no heat intolerance Hematologic / Lymphatic: no easy bleeding and no easy bruising Physical Exam Constitutional: well developed and well nourished; no acute distress Eyes: PERRL, conjunctivae normal, anicteric sclerae ENMT: Mouth: oral mucous membranes not dry Respiratory: normal respiratory effort; no respiratory distress and no labored breathing Auscultation: + breath sounds absent (left base) and + rhonchi (left lung); + lungs not clear to auscultation, no crackles, no rales and no wheezes Cardiovascular: Rate/Rhythm: regular rate and regular rhythm Heart Sounds: no murmur and no cardiac rub Vessels: normal peripheral pulses and radial pulses present; no JVD Extremities: + edema Gastrointestinal (Abdomen): Inspection/Auscultation: abdomen normal to inspection and normal bowel sounds; abdomen not distended Percussion/Palp ation: abdomen soft; abdomen nontender, no guarding, abdomen not rigid and no hepatosplenomegaly Musculoskeletal: Head/Neck/Chest: normocephalic and head atraumatic Spine: no cervical spinal tenderness, no cervical muscular tenderness, no thoracic spinal tenderness and no lumbar spinal tenderness Skin: no rashes, warm and dry Neurologic: CN's II-XI intact bilaterally and moves all extremities Motor/Sensory: no tremor and no sensory deficit Psychiatric: Orientation: alert, oriented to person, oriented to place and oriented to time Apperance: appropriately groomed; not disheveled Affect: euthymic affect, + anxious affect and + tearful affect Genitourinary: no CVA tenderness no Lozada catheter Results & Data Results & Data ([facility]) Vital Signs (Past 12 Hours) Vital Signs Temp Pulse Pulse Resp BP Pulse Ox 09/12/20 16:39 99 H 09/12/20 16:27 36.5 C 105 H 20 127/68 94 09/12/20 11:25 36.8 C 88 18 129/65 92 09/12/20 07:22 109 H 09/12/20 07:21 37.1 C 109 H 18 136/67 92 09/12/20 06:00 92 H Laboratory Results Abnormal lab results 09/12/20 09/12/20 Range/Units 05:58 05:58 RBC 2.57 L (4.2-5.4) M/uL Hgb 8.5 L (12.0-16.0) g/dL Hct 25.6 L (37-47) % RDW Std Deviation 75.8 H (36.4-46.3) fL RDW Coeff of Harish 20.5 H (11.5-14.5) % Plt Count 39 L (130-400) K/uL Absolute Nucleated RBC 0.23 H (0-0) K/uL Monocytes # (Manual) 2.07 H (0.11-0.59) K/uL Myelocytes # (Manual) 0.02 H (0-0) K/uL Blast Cells # (Man) 0.86 H (0-0) K/uL Other Cells # 0.11 H (0-0) K/uL Platelet Estimate Decreased L (Normal) Sodium 131 L (136-145) mmol/L Creatinine 0.57 L (0.6-1.2) mg/dl BUN/Creatinine Ratio 24.7 H (10-20) Glucose 141 H (70-99) mg/dl Calcium 7.7 L (8.5-10.1) mg/dl Medications Administered Current Inpatient Medications Acetaminophen (Acetaminophen 325 Mg Tab) 650 mg PO Q4H PRN PRN Reason: pain/fever Stop: 12/05/20 20:45 Last Admin: 09/06/20 23:46 Dose: 650 mg Documented by: Amlodipine Besylate (Amlodipine Besylate 5 Mg Tab) 2.5 mg PO DAILY [facility] Stop: 10/07/20 08:59 Last Admin: 09/12/20 07:42 Dose: 2.5 mg Documented by: Benzonatate (Benzonatate 100 Mg Capsule) 100 mg PO TID [facility] Stop: 10/09/20 15:54 Last Admin: 09/12/20 13:17 Dose: 100 mg Documented by: Cyanocobalamin (Cyanocobalamin 500 Mcg Tablet (Vitamin B-12)) 1,000 mcg PO DAILY [facility] Stop: 10/07/20 08:59 Last Admin: 09/12/20 07:42 Dose: 1,000 mcg Documented by: Enoxaparin Sodium (Enoxaparin Inj 40 Mg/0.4 Ml Syr) 40 mg SQ Q24H [facility] Stop: 10/06/20 20:59 Last Admin: 09/11/20 20:17 Dose: 40 mg Documented by: Folic Acid (Folic Acid 1 Mg Tab) 1 mg PO QAM [facility] Stop: 10/07/20 13:29 Last Admin: 09/12/20 07:41 Dose: 1 mg Documented by: Guaifenesin (Guaifenesin 600 Mg Tabcr) 1,200 mg PO Q12 [facility] Stop: 10/07/20 12:59 Last Admin: 09/12/20 07:42 Dose: 1,200 mg Documented by: Haloperidol (Haloperidol 1 Mg Tab) 1 mg PO HS [facility] Stop: 10/06/20 20:59 Last Admin: 09/11/20 20:18 Dose: 1 mg Documented by: Doxycycline Hyclate 100 mg/ (Dextrose) 110 mls @ 50 mls/hr IV Q12H [facility] Stop: 09/15/20 09:59 Last Infusion: 09/12/20 13:16 Dose: Infused Documented by: Ceftriaxone Sodium 2,000 mg/ (Dextrose) 70 mls @ 100 mls/hr IV Q24H [facility]; Protocol Stop: 09/16/20 20:59 Last Infusion: 09/11/20 21:18 Dose: Infused Documented by: Furosemide 40 mg/ Syringe 4 mls @ 4 mls/min IV ONE ONE Stop: 09/12/20 17:16 Magnesium Oxide (Magnesium Oxide 400 Mg Tab) 400 mg PO BID [facility] Stop: 10/08/20 08:59 Last Admin: 09/12/20 07:42 Dose: 400 mg Documented by: Metoprolol Tartrate (Metoprolol Tartrate 50 Mg Tab) 50 mg PO BID [facility] Stop: 10/09/20 20:59 Last Admin: 09/12/20 07:42 Dose: 50 mg Documented by: Nortriptyline HCl (Nortriptyline Hcl 25 Mg Cap) 100 mg PO HS [facility] Stop: 10/06/20 20:59 Last Admin: 09/11/20 20:20 Dose: 100 mg Documented by: Ondansetron HCl (Ondansetron Inj 2 Mg/Ml 2 Ml Vial) 4 mg IV Q4H PRN PRN Reason: Nausea Stop: 10/06/20 20:45 Last Admin: 09/08/20 09:06 Dose: 4 mg Documented by: Pantoprazole Sodium (Pantoprazole 40 Mg Tab) 40 mg PO QAM [facility] Stop: 10/09/20 08:59 Last Admin: 09/12/20 07:42 Dose: 40 mg Documented by: Polyethylene Glycol (Polyethylene (Miralax) 17 Gm Pack) 17 gm PO DAILY [facility] Stop: 10/09/20 17:59 Last Admin: 09/12/20 07:42 Dose: 17 gm Documented by: Raloxifene HCl (Raloxifene Hcl 60 Mg Tab) 60 mg PO DAILY [facility] Stop: 10/07/20 08:59 Last Admin: 09/08/20 08:56 Dose: 60 mg Documented by: PG Care Time/CCT Total # of Minutes Spent Total Time Spent with Patient: Total time spent is greater than 50% in coordination of care (as documented) at patient's floor/unit and/or counseling patient: Coding Level of Care Code 77508 Subseq Hosp Care Lvl 3 Diagnoses Acute diastolic CHF (congestive heart failure) I50.31 Pneumonia J18.9 Pneumonia type: due to unspecified organism Laterality: bilateral Lung location: unspecified part of lung Hyponatremia E87.1 MDS/MPN (myelodysplastic/myeloproliferative neoplasms) D46.9 Anemia D64.9 Tachycardia R00.0 Edema R60.9 Edema type: unspecified Depression F32.9 Hypertension I10 GERD (gastroesophageal reflux disease) K21.9 Thrombocytopenia D69.6 Hypokalemia E87.6 DVT prophylaxis Z29.9 (1) Pneumonia Pneumonia type: due to unspecified organism Laterality: bilateral Lung location: unspecified part of lung Qualified Code(s): J18.9 - Pneumonia, unspecified organism (2) Edema Edema type: unspecified Qualified Code(s): R60.9 - Edema, unspecified
[2020-09-12] MEDS ORDERED: FUROSEMIDE 40 MG in SYRINGE 0 ML IV ONE (17:15)
[2020-09-12] MEDS: ONDANSETRON INJ 2 MG/ML 2 ML VIAL IV PRN (17:48)
[2020-09-12 18:46] LABS: Mycoplasma pneumoniae Ab, IgG <=0.90 (<=0.90); Mycoplasma pneumoniae Ab, IgM 285 U/mL (<770)
[2020-09-12] MEDS: ENOXAPARIN INJ 40 MG/0.4 ML SYR SQ SCH (20:03)
[2020-09-12] MEDS: haloperidoL 1 MG TAB PO SCH (20:04)
[2020-09-12] MEDS: NORTRIPTYLINE HCL 25 MG CAP PO SCH (20:06)
[2020-09-12] MEDS: cefTRIAXone SODIUM 2,000 MG in DEXTROSE 5% 50 ML IV SCH (20:33)
[2020-09-13 07:01] LABS: Mean Corpuscular Hgb Conc 33.1 g/dL (32-36); Nucleated RBC # (auto) 0.26 K/uL (0-0); Nucleated RBC % (auto) 4.6 %
[2020-09-13 07:21] LABS: Hematocrit (blood only) 24.2 % (37-47); Mean Corpuscular Hemoglobin 33.1 pg (25-34); RDW Coefficient of Variation 20.4 % (11.5-14.5); RDW Standard Deviation 74.6 fL (36.4-46.3); Red Blood Count 2.42 M/uL (4.2-5.4); White Blood Count 5.51 K/uL (4.8-10.8)
[2020-09-13 07:42] LABS: BUN Creatinine Ratio 26.1 (10-20); Calcium 7.5 mg/dl (8.5-10.1); Creatinine Clr Calc Pharmacy 100.1 ml/min; Est GFR (Non-African American) 92.3
[2020-09-13] MEDS: PANTOprazole 40 MG TAB PO SCH ×2 (07:51→09:00)
[2020-09-13] MEDS: amLODIPine BESYLATE 5 MG TAB PO SCH (07:51)
[2020-09-13] MEDS: FOLIC ACID 1 MG TAB PO SCH (07:51)
[2020-09-13] MEDS: METOPROLOL TARTRATE 50 MG TAB PO SCH ×2 (07:51→19:42)
[2020-09-13] MEDS: MAGNESIUM OXIDE 400 MG TAB PO SCH ×2 (07:52→19:43)
[2020-09-13] MEDS: BENZONATATE 100 MG CAPSULE PO SCH ×3 (07:52→19:46)
[2020-09-13] MEDS: CYANOCOBALAMIN 500 MCG TABLET (VITAMIN B-12) PO SCH (07:52)
[2020-09-13 07:53] LABS: Platelet Count 47 K/uL (130-400)
[2020-09-13] MEDS: guaiFENesin 600 MG TABCR PO SCH (07:53)
[2020-09-13] MEDS: POLYETHYLENE (MIRALAX) 17 GM PACK PO SCH (07:53)
[2020-09-13] MEDS: DOXYCYCLINE HYCLATE 100 MG in DEXTROSE 5% 100 ML IV SCH ×2 (07:53→19:45)
[2020-09-13 08:16] LABS: ALC (manual) 1.24 K/uL (1.2-3.4); ANC (manual) 1.84 K/uL (1.4-6.5); Anisocytosis Present; Blast # (manual) 0.69 K/uL (0-0); Blast Cells % (manual) 12.6 %; Eosinophils # (manual) 0.05 K/uL (0-0.5); Eosinophils % (manual) 0.9 %; Giant Platelets 1+; Hypogranular Neutrophils 2+; Lymphocytes # (manual) 1.24 K/uL (1.2-3.4); Lymphocytes % (manual) 22.5 %; Monocytes # (manual) 1.54 K/uL (0.11-0.59); Monocytes % (manual) 27.9 %; Myelocytes # (manual) 0.15 K/uL (0-0); Myelocytes % (manual) 2.7 %; Neutrophils # (manual) 1.84 K/uL (1.4-6.5); Neutrophils % (manual) 33.4 %; Toxic Vacuolation 1+
[2020-09-13] MEDS ORDERED: FUROSEMIDE 20 MG in SYRINGE 0 ML IV ONE (13:45)
[2020-09-13] MEDS ORDERED: BENZONATATE 100 MG CAPSULE PO SCH (14:00)
[2020-09-13] MEDS: guaiFENesin/DEXTROM SYRUP 100MG/10MG 5ML UDC PO PRN ×2 (16:22→22:18)
[2020-09-13] MEDS: ACETAMINOPHEN 325 MG TAB PO PRN (16:28)
--- NOTE | 2020-09-13 16:28 | Hospitalist Progress Note ---
Date of Service September 13, 2020 Assessment & Plan (1) Acute diastolic CHF (congestive heart failure): Cardiac echo with normal systolic function EF 60-65%, was not on lasix as outpatient Treating with intravenous Lasix 11-11 worsening CXR findings and lower extremity edema, giving lasix 11-12 giving additional lasix Started metoprolol this admission On arrival, her weight was 90.6kg, down to 87.2kg today (2) Pneumonia: admission CT chest with diffuse b/l infiltrates, pneumonia vs edema 09-09 through 09-13 rocephin and doxycycline were given 5 days 09-13 procalcitonin 0.09, will stop antibiotics COVID-19 neg. RSV and rapid flu negative. mycoplasma studies negative Legionella antigen negative. (3) MDS/MPN (myelodysplastic/myeloproliferative neoplasms): Followed by [facility] locally. Appreciate heme/onc consult and recs. s/p 2 units PRBCs this admission with robust reponse Hemolytic w/u negative. Daily CBC. Cont folate supplementation. (4) Hyponatremia: likely related to hypervolemia diuresing Cont daily BMP (5) Tachycardia: TSH wnl. Tachycardia due to SIRS, anemia, decompensated CHF Echo findings noted. added metoprolol this admission. Dosage uptitrated today, September 11. (6) Edema: Dopplers neg for DVT Edema 2nd to acute diastolic CHF. Edema is improving (7) Depression: Cont home meds. (8) Anemia: s/p 1 unit PRBCs 09/07 and 1 unit on 09/08. Serial CBC . Folate 1mg daily. (9) Hypertension: Cont home meds. (10) GERD (gastroesophageal reflux disease): protonix daily (11) Thrombocytopenia: Chronic issue. Previously actually had thrombocytosis treated with hydroxyurea. Appreciate heme/onc consult. Daily CBC. Use lovenox for DVT proph cautiously. HOLD aspirin. (12) Hypokalemia: replaced and resolved stopped K supplementation (13) DVT prophylaxis: lovenox daily cautiously (in light of low platelets) brother updated by phone 09/07/20 and 09/09/20 Admission and Anticipated Discharge Date Admission Date: September 06, 2020 Subjective Endorsing dyspnea on exertion. Dry cough. Leg edema continues to improve. Denies abdominal pain, chest pain, headache. Is tolerating diet. Had a small BM yesterday. Denies dysuria or hematuria. Review of Systems Constitutional: no fever, no chills, no fatigue, no weakness, no anorexia, no weight loss and no weight gain Ear, Nose, Mouth, Throat: no nasal congestion, no sore throat and no dysphagia Respiratory: + cough and + dyspnea Cardiovascular: + edema; no chest pain, no dyspnea on exertion, no orthopnea and no palpitations Gastrointestinal: no abdominal pain, no nausea, no vomiting, no hematemesis, no dysphagia, no constipation, no diarrhea/loose stools, no blood in stools and no melena Genitourinary: no dysuria, no urinary frequency, no hematuria and no flank pain Musculoskeletal: no back pain, no joint pain, no myalgia and no muscle weakness Integumentary: no rash, no lesions, no skin ulcer, no erythema, no dry skin and no pruritus Neurologic: no falls, no localized weakness, no generalized weakness, no numbness, no paresthesia, no tremor(s) and no headache(s) Psychiatric: no depression, no suicidal ideation, no homicidal ideation and no anxiety Endocrine: no cold intolerance and no heat intolerance Hematologic / Lymphatic: no easy bleeding and no easy bruising Physical Exam Constitutional: well developed and well nourished; no acute distress Eyes: PERRL, conjunctivae normal, anicteric sclerae ENMT: Mouth: oral mucous membranes not dry Respiratory: normal respiratory effort; no respiratory distress and no labored breathing Auscultation: lungs clear to auscultation bilaterally and + rales; breath sounds present (left base), no crackles, no rhonchi (left lung) and no wheezes Cardiovascular: Rate/Rhythm: regular rate and regular rhythm Heart Sounds: no murmur and no cardiac rub Vessels: normal peripheral pulses and radial pulses present; no JVD Extremities: + edema Gastrointestinal (Abdomen): Inspection/Auscultation: abdomen normal to inspection and normal bowel sounds; abdomen not distended Percussion/Palpation: abdomen soft; abdomen nontender, no guarding, abdomen not rigid and no hepatosplenomegaly Musculoskeletal: Head/Neck/Chest: normocephalic and head atraumatic Spine: no cervical spinal tenderness, no cervical muscular tenderness, no thoracic spinal tenderness and no lumbar spinal tenderness Skin: no rashes, warm and dry Neurologic: CN's II-XI intact bilaterally and moves all extremities Motor/Sensory: no tremor and no sensory deficit Psychiatric: Orientation: alert, oriented to person, oriented to place and oriented to time Apperance: appropriately groomed; not disheveled Affect: euthymic affect; no anxious affect and no tearful affect Genitourinary: no CVA tenderness Results & Data Results & Data ([facility]) Vital Signs (Past 12 Hours) Vital Signs Temp Pulse Pulse Resp BP BP Pulse Ox 09/13/20 15:28 37.0 C 98 H 18 104/63 92 09/13/20 11:10 36.7 C 95 H 18 121/66 90 09/13/20 07:53 36.7 C 102 H 18 129/67 90 09/13/20 07:00 99 H Laboratory Results Abnormal lab results 09/13/20 09/13/20 Range/Units 06:46 06:46 RBC 2.42 L (4.2-5.4) M/uL Hgb 8.0 L (12.0-16.0) g/dL Hct 24.2 L (37-47) % RDW Std Deviation 74.6 H (36.4-46.3) fL RDW Coeff of Harish 20.4 H (11.5-14.5) % Plt Count 47 L (130-400) K/uL Absolute Nucleated RBC 0.26 H (0-0) K/uL Monocytes # (Manual) 1.54 H (0.11-0.59) K/uL Myelocytes # (Manual) 0.15 H (0-0) K/uL Blast Cells # (Man) 0.69 H (0-0) K/uL Sodium 132 L (136-145) mmol/L Creatinine 0.54 L (0.6-1.2) mg/dl BUN/Creatinine Ratio 26.1 H (10-20) Glucose 124 H (70-99) mg/dl Calcium 7.5 L (8.5-10.1) mg/dl Medications Administered Current Inpatient Medications Acetaminophen (Acetaminophen 325 Mg Tab) 650 mg PO Q4H PRN PRN Reason: pain/fever Stop: 10/06/20 20:45 Last Admin: 09/06/20 23:46 Dose: 650 mg Documented by: Amlodipine Besylate (Amlodipine Besylate 5 Mg Tab) 2.5 mg PO DAILY [facility] Stop: 10/07/20 08:59 Last Admin: 09/13/20 07:51 Dose: 2.5 mg Documented by: Benzonatate (Benzonatate 100 Mg Capsule) 100 mg PO TID [facility] Stop: 10/09/20 15:54 Last Admin: 09/13/20 12:49 Dose: 100 mg Documented by: Cyanocobalamin (Cyanocobalamin 500 Mcg Tablet (Vitamin B-12)) 1,000 mcg PO DAILY [facility] Stop: 10/07/20 08:59 Last Admin: 09/13/20 07:52 Dose: 1,000 mcg Documented by: Enoxaparin Sodium (Enoxaparin Inj 40 Mg/0.4 Ml Syr) 40 mg SQ Q24H [facility] Stop: 10/06/20 20:59 Last Admin: 09/12/20 20:03 Dose: 40 mg Documented by: Folic Acid (Folic Acid 1 Mg Tab) 1 mg PO QAM [facility] Stop: 10/07/20 13:29 Last Admin: 09/13/20 07:51 Dose: 1 mg Documented by: Guaifenesin/Dextromethorphan (Guaifenesin/Dextrom Syrup 100mg/10mg 5ml Udc) 5 ml PO Q6H PRN PRN Reason: Cough Stop: 10/13/20 13:04 Last Admin: 09/13/20 16:22 Dose: 5 ml Documented by: Haloperidol (Haloperidol 1 Mg Tab) 1 mg PO HS [facility] Stop: 10/06/20 20:59 Last Admin: 09/12/20 20:04 Dose: 1 mg Documented by: Doxycycline Hyclate 100 mg/ (Dextrose) 110 mls @ 50 mls/hr IV Q12H [facility] Stop: 09/15/20 09:59 Last Infusion: 09/13/20 12:48 Dose: Infused Documented by: Ceftriaxone Sodium 2,000 mg/ (Dextrose) 70 mls @ 100 mls/hr IV Q24H [facility]; Protocol Stop: 09/16/20 20:59 Last Infusion: 09/12/20 21:21 Dose: Infused Documented by: Magnesium Oxide (Magnesium Oxide 400 Mg Tab) 400 mg PO BID [facility] Stop: 10/08/20 08:59 Last Admin: 09/13/20 07:52 Dose: 400 mg Documented by: Metoprolol Tartrate (Metoprolol Tartrate 50 Mg Tab) 50 mg PO BID [facility] Stop: 10/09/20 20:59 Last Admin: 09/13/20 07:51 Dose: 50 mg Documented by: Nortriptyline HCl (Nortriptyline Hcl 25 Mg Cap) 100 mg PO HS [facility] Stop: 10/06/20 20:59 Last Admin: 09/12/20 20:06 Dose: 100 mg Documented by: Ondansetron HCl (Ondansetron Inj 2 Mg/Ml 2 Ml Vial) 4 mg IV Q4H PRN PRN Reason: Nausea Stop: 10/06/20 20:45 Last Admin: 09/12/20 17:48 Dose: 4 mg Documented by: Pantoprazole Sodium (Pantoprazole 40 Mg Tab) 40 mg PO QAM [facility] Stop: 10/09/20 08:59 Last Admin: 09/13/20 07:51 Dose: 40 mg Documented by: Polyethylene Glycol (Polyethylene (Miralax) 17 Gm Pack) 17 gm PO DAILY [facility] Stop: 10/09/20 17:59 Last Admin: 09/13/20 07:53 Dose: 17 gm Documented by: Raloxifene HCl (Raloxifene Hcl 60 Mg Tab) 60 mg PO DAILY [facility] Stop: 10/07/20 08:59 Last Admin: 09/08/20 08:56 Dose: 60 mg Documented by: PG Care Time/CCT Total # of Minutes Spent Total Time Spent with Patient: Total time spent is greater than 50% in coordination of care (as documented) at patient's floor/unit and/or counseling patient: Coding Level of Care Code 52447 Subseq Hosp Care Lvl 3 Diagnoses Acute diastolic CHF (congestive heart failure) I50.31 Pneumonia J18.9 Pneumonia type: due to unspecified organism Laterality: bilateral Lung location: unspecified part of lung MDS/MPN (myelodysplastic/myeloproliferative neoplasms) D46.9 Hyponatremia E87.1 Tachycardia R00.0 Edema R60.9 Edema type: unspecified Depression F32.9 Anemia D64.9 Hypertension I10 GERD (gastroesophageal reflux disease) K21.9 Thrombocytopenia D69.6 Hypokalemia E87.6 DVT prophylaxis Z29.9 (1) Pneumonia Pneumonia type: due to unspecified organism Laterality: bilateral Lung location: unspecified part of lung Qualified Code(s): J18.9 - Pneumonia, unspecified organism (2) Edema Edema type: unspecified Qualified Code(s): R60.9 - Edema, unspecified
[2020-09-13] MEDS: cefTRIAXone SODIUM 2,000 MG in DEXTROSE 5% 50 ML IV SCH (19:33)
[2020-09-13] MEDS: ENOXAPARIN INJ 40 MG/0.4 ML SYR SQ SCH (19:41)
[2020-09-13] MEDS: haloperidoL 1 MG TAB PO SCH (19:41)
[2020-09-13] MEDS: NORTRIPTYLINE HCL 25 MG CAP PO SCH (19:41)
[2020-09-14] MEDS: guaiFENesin/DEXTROM SYRUP 100MG/10MG 5ML UDC PO PRN ×2 (03:54→07:39)
[2020-09-14] MEDS: BENZONATATE 100 MG CAPSULE PO SCH ×2 (07:26→12:55)
[2020-09-14] MEDS: amLODIPine BESYLATE 5 MG TAB PO SCH (07:36)
[2020-09-14] MEDS: CYANOCOBALAMIN 500 MCG TABLET (VITAMIN B-12) PO SCH (07:37)
[2020-09-14] MEDS: PANTOprazole 40 MG TAB PO SCH (07:38)
[2020-09-14] MEDS: METOPROLOL TARTRATE 50 MG TAB PO SCH (07:38)
[2020-09-14] MEDS: MAGNESIUM OXIDE 400 MG TAB PO SCH (07:38)
[2020-09-14] MEDS: POLYETHYLENE (MIRALAX) 17 GM PACK PO SCH (07:38)
[2020-09-14] MEDS: FOLIC ACID 1 MG TAB PO SCH (07:39)
[2020-09-14] MEDS: DOXYCYCLINE HYCLATE 100 MG in DEXTROSE 5% 100 ML IV SCH (07:43)
[2020-09-14 08:20] LABS: Mean Corpuscular Hgb Conc 32.9 g/dL (32-36); Nucleated RBC # (auto) 0.26 K/uL (0-0); Nucleated RBC % (auto) 3.3 %
[2020-09-14 08:50] LABS: BUN Creatinine Ratio 21.4 (10-20); Calcium 7.7 mg/dl (8.5-10.1); Creatinine Clr Calc Pharmacy 88.6 ml/min; Est GFR (African American) 102.8; Est GFR (Non-African American) 88.7; Magnesium 2.3 mg/dl (1.8-2.4); Potassium 3.9 mmol/L (3.5-5.1)
[2020-09-14 09:01] LABS: Hematocrit (blood only) 23.9 % (37-47); Mean Corpuscular Hemoglobin 33.3 pg (25-34); Mean Corpuscular Volume 99.6 fL (80-100); Platelet Count 51 K/uL (130-400); RDW Coefficient of Variation 20.2 % (11.5-14.5); White Blood Count 7.46 K/uL (4.8-10.8)
[2020-09-14 09:46] LABS: ALC (manual) 2.13 K/uL (1.2-3.4); Anisocytosis Present; Basophils # (manual) 0.07 K/uL (0-0.2); Basophils % (manual) 0.9 %; Blast # (manual) 1.73 K/uL (0-0); Blast Cells % (manual) 23.2 %; Eosinophils # (manual) 0.13 K/uL (0-0.5); Eosinophils % (manual) 1.8 %; Giant Platelets 1+; Lymphocytes # (manual) 2.13 K/uL (1.2-3.4); Lymphocytes % (manual) 28.6 %; Monocytes # (manual) 1.73 K/uL (0.11-0.59); Monocytes % (manual) 23.2 %; Myelocytes # (manual) 0.07 K/uL (0-0); Myelocytes % (manual) 0.9 %; Neutrophils % (manual) 21.4 %
--- NOTE | 2020-09-14 12:25 | Electrocardiogram Report ---
Test Reason : Blood Pressure : / mmHG Vent. Rate : 091 BPM Atrial Rate : 091 BPM P-R Int : 164 ms QRS Dur : 084 ms QT Int : 376 ms P-R-T Axes : 027 005 033 degrees QTc Int : 462 ms Sinus rhythm with occasional Premature ventricular complexes Low voltage QRS Possible Inferior infarct , age undetermined Abnormal ECG When compared with ECG of 06-SEP-2020 16:42, Premature ventricular complexes are now Present Confirmed by Michael Corona ([id number]) on 09/14/2020 12:25:18 PM Referred By: Rebecca Heard Confirmed By:Michael Corona
--- NOTE | 2020-09-14 14:03 | Discharge Summary ---
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 She reports that she has been not feeling well for at least 3-4 weeks. She had an upper URI diagnosed in late July and was on antibiotics. Since that time, she has noted further shortness of breath and also gradually increasing leg swelling. She reports an acute increase in her shortness of breath today. She denies any fevers/chills/sweats. She denies any cough. Her myeloproliferative/myelodysplastic neoplasm has had a complex treatment plan, and it seems she follows with Dr. Ramirez and another [place] oncologist. She was on hydroxyurea at some point for thrombocytosis; however, at present she has thrombocytopenia. Principal Diagnosis diastolic CHF and pneumonia Discharge Exam Constitutional well developed and well nourished; no acute distress Eyes PERRL, conjunctivae normal, anicteric sclerae ENMT Mouth: oral mucous membranes not dry Respiratory normal respiratory effort; no respiratory distress and no labored breathing Auscultation: lungs clear to auscultation bilaterally and + breath sounds absent (left base); no crackles, no rhonchi (left lung) and no wheezes Cardiovascular Rate/Rhythm: regular rate and regular rhythm Heart Sounds: no murmur and no cardiac rub Vessels: normal peripheral pulses and radial pulses present; no JVD Extremities: + edema Gastrointestinal (Abdomen) Inspection/Auscultation: abdomen normal to inspection and normal bowel sounds; abdomen not distended Percussion/Palpation: abdomen soft; abdomen nontender, no guarding, abdomen not rigid and no hepatosplenomegaly Musculoskeletal Head/Neck/Chest: normocephalic and head atraumatic Spine: no cervical spinal tenderness, no cervical muscular tenderness, no thoracic spinal tenderness and no lumbar spinal tenderness Skin no rashes, warm and dry Neurologic CN's II-XI intact bilaterally and moves all extremities Motor/Sensory: no tremor and no sensory deficit Psychiatric Orientation: alert, oriented to person, oriented to place and oriented to time Apperance: appropriately groomed; not disheveled Affect: euthymic affect; no anxious affect and no tearful affect Genitourinary no CVA tenderness Discharge Data Allergies Allergy/AdvReac Type Severity Reaction Status Date / Time latex Allergy Unknown RASH FROM Verified 09/06/20 17:43 LATEX GLOVES Consultations 09/06/20 18:29 ED Decision to Admit Stat 09/06/20 20:46 Consult Oncology Routine Ordered Studies 09/06/20 19:37 CT angio chest PE protocol Stat 09/07/20 15:00 US venous doppler LE Routine Hospital Course (1) Acute diastolic CHF (congestive heart failure): Cardiac echo with normal systolic function EF 60-65%, was not on lasix as outpatient Treating with intravenous Lasix 09-12 worsening CXR findings and lower extremity edema, giving lasix - giving additional lasix Started metoprolol this admission 09-14 On arrival, her weight was 90.6kg, down to 87.2kg (2) Pneumonia: admission CT chest with diffuse b/l infiltrates, pneumonia vs edema 09-09 through 09-13 rocephin and doxycycline were given 5 days 09-13 procalcitonin 0.09, will stop antibiotics COVID-19 neg. RSV and rapid flu negative. mycoplasma studies negative Legionella antigen negative. (3) MDS/MPN (myelodysplastic/myeloproliferative neoplasms): Followed by [facility] and [facility] locally. Appreciate heme/onc consult and recs. s/p 2 units PRBCs this admission with robust reponse Hemolytic w/u negative. Daily CBC. Cont folate supplementation. (4) Hyponatremia: likely related to hypervolemia diuresing Cont daily BMP (5) Tachycardia: TSH wnl. Tachycardia due to SIRS, anemia, decompensated CHF Echo findings noted. added metoprolol this admission 09-14 EKG sinus rhythm at 91bpm with PVCs (6) Edema: Dopplers neg for DVT Edema 2nd to acute diastolic CHF. Norvasc can contribute to edema Stopped norvasc Edema is improving with lasix (7) Depression: Cont home meds. (8) Anemia: s/p 1 unit PRBCs 09/07 and 1 unit on 09/08. Serial CBC . Folate 1mg daily. (9) Hypertension: Stop amlodipine (10) GERD (gastroesophageal reflux disease): protonix daily (11) Thrombocytopenia: Chronic issue. Previously actually had thrombocytosis treated with hydroxyurea. Appreciate heme/onc consult. Daily CBC. Use lovenox for DVT proph cautiously. HOLD aspirin. (12) Hypokalemia: replaced and resolved stopped K supplementation (13) DVT prophylaxis: lovenox daily cautiously (in light of low platelets) brother updated by phone 09/07/20 and 09/09/20 Total Time Total Time Spent Total Time Spent (In Minutes): 40 Total Time Includes: Examination of the Patient, Discharge Planning, Medication Reconciliation, Communication With Other Providers and Other Discharge Plan Discharge Items Patient Disposition: Transfer Alf Fac Reason For Visit: edema, shortness of breath Discharge Diagnosis: 1. diastolic congestive heart failure 2. community acquired pneumonia 3. hyponatremia 4. tachycardia 5. anemia Activity: Resume your previous activity Non-emergency contact: Primary Care Provider Call non-emergency contact if: you have any medication questions Follow-up/Referrals: Rebecca Heard MD [Primary Care Provider] - (within one week of discharge for BMP, CBC, hospital follow up) Diet: Low Sodium (2gm) Fluids: 1500ml (6 cups) Addtl Attending Provider Instructions: 1. Monitor your weight every morning after using toilet 2. If you gain 3 pounds in one day or 5 pounds in one week, call your primary care physician 3. Stop taking amlodipine 4. Start taking metoprolol tartrate 50mg twice daily, which will help control your heart rate 5. Start taking folic acid 1mg daily 6. You can continue to take robitussin or tessalon as needed every six hours for coughing 7. Continue physical therapy and occupational therapy at the [facility] facility Pending Studies at Discharge: No Stand-Alone Forms: My [facility] Skilled Items Patient informed of condition?: Yes DNR: No Discharge Level of Care: Skilled Communicable Disease: No Discharge Prognosis: Improving Lines: None Urinary Catheter: No Medications and DC Order Prescriptions: New dextromethorphan-guaifenesin 10-100 mg/5 mL Syrup 5 ml PO Q6H PRN (Reason: cough) Qty: 237 RF: 0 benzonatate [Tessalon Perles] 100 mg Capsule 100 mg PO TID Qty: 30 RF: 0 metoprolol tartrate 50 mg Tablet 50 mg PO BID Qty: 30 RF: 0 folic acid 1 mg Tablet 1 mg PO QAM Qty: 30 RF: 0 Continued ibandronate 150 mg tablet 150 mg PO MONTHLY Qty: 3 RF: 3 haloperidol 0.5 mg tablet 1 mg PO HS Qty: 180 RF: 3 nortriptyline 50 mg capsule 100 mg PO HS Qty: 60 RF: 5 spironolacton-hydrochlorothiaz 25-25 mg tablet 1 tab PO DAILY Qty: 90 RF: 3 raloxifene 60 mg tablet 60 mg PO DAILY Qty: 90 RF: 3 amoxicillin 500 mg capsule 2,000 mg PO ONCE PRN (Reason: dental appointments) Qty: 4 RF: 2 potassium chloride 8 mEq capsule, extended release 8 meq PO DAILY RF: 0 multivitamin tablet 1 tab PO DAILY RF: 0 cholecalciferol (vitamin D3) [Vitamin D3] 2,000 unit Capsule 2,000 unit PO QAM RF: 0 aspirin [Aspir-81] 81 mg Tablet,Delayed Release (Dr/Ec) 1 tab PO BID RF: 0 cyanocobalamin (vitamin B-12) [Vitamin B-12] 500 mcg Tablet 1,000 mcg PO DAILY RF: 0 Discontinued amlodipine 2.5 mg tablet 2.5 mg PO DAILY Qty: 90 RF: 3 Discharge Orders: Discharge Order (Routine); Ordered 09/14/20 Ordered By: Ana Vitale/Other Patient Handouts: Prediabetes, A1C Admission Data Admit Date/Time: 09/06/20 19:37 Attending Provider: Ana Harley Admit Provider: Bam Pack Primary Care Provider: Rebecca Heard Other Providers: Bam Pack ; Kuldeep Ramirez V. ; [facility] Other Interventions: Discharge Summary Assessment (RN) Last Done: 09/14/20 13:12 Coding Level of Care Code D/C Day Management >30 mins Diagnoses Acute diastolic CHF (congestive heart failure) I50.31 Pneumonia J18.9 Pneumonia type: due to unspecified organism Laterality: bilateral Lung location: unspecified part of lung MDS/MPN (myelodysplastic/myeloproliferative neoplasms) D46.9 Hyponatremia E87.1 Tachycardia R00.0 Edema R60.9 Edema type: unspecified Depression F32.9 Anemia D64.9 Hypertension I10 GERD (gastroesophageal reflux disease) K21.9 Thrombocytopenia D69.6 Hypokalemia E87.6 DVT prophylaxis Z29.9
== END 2020-09-14 18:03 | DRG 291 ==
LOC: ED 15:33 → 2N 19:37 → SUATTDRO 19:37 → 2N 20:16